=== PATIENT | female | born 1930 | race Caucasian/White ===

== ENCOUNTER → 2018-04-02 | Outpatient (CLI) | payer MEDICARE, OTHER ==
[2018-04-02 18:08] LABS: Basophils % (A) 0 %; Eosinophils # (A) 0.2 k/uL (0-0.7); Eosinophils % (A) 3 %; HCT 31.1 % (34.0-46.0); HGB 9.4 gm/dL (11.4-16.0); Hypochromasia Marked; Lymphocytes # (A) 1.1 k/uL (1.0-4.8); Lymphocytes % (A) 15 %; MCH 29.5 pg (25.0-35.0); MCHC 30.3 g/dL (31.0-37.0); MCV 97.4 fL (80.0-100.0); Mean Platelet Volume 6.7; Monocytes # (A) 0.4 k/uL (0-1.0); Monocytes % (A) 6 %; Neutrophils # (A) 5.8 k/uL (1.3-7.7); Neutrophils % (A) 75 %; Platelet Count 297 k/uL (150-450); RDW 13.2 % (11.5-15.5); WBC 7.7 k/uL (3.8-10.6)
[2018-04-03 03:05] LABS: Iron Saturation 10.54 (12.00-45.00)
== END ==
LOC: LABWHC1 16:46
PROVIDERS: ATTEND Family Medicine
DX: D64.9 Anemia, unspecified (principal)
CPT/HCPCS: 36415; 82728; 83540; 83550; 85025

== ENCOUNTER 2018-07-02 02:09 | Inpatient (IN) | payer MEDICARE, OTHER ==
[2018-07-02] MEDS ORDERED: SODIUM CHLORIDE 0.9% 500 ML 500 ML IV STA (02:49)
--- NOTE | 2018-07-02 02:52 | ED ---
General Adult HPI - General Source: patient, family, RN notes reviewed Mode of arrival: wheelchair Limitations: no limitations <Agusto Adorno P - Last Filed: 07/02/18 04:48> <Cleo Morin P - Last Filed: 07/03/18 04:08> - General Chief complaint: Abdominal Pain Stated complaint: Abdominal Pain Time Seen by Provider: 07/02/18 02:23 - History of Present Illness Initial comments: 87-year-old female with a PMH of hyperlipidemia presents to the emergency department for a chief complaint of abdominal pain 2 days. Patient states this pain started yesterday. She states it is a sharp pain across the middle of her abdomen. She denies any alleviating or aggravating factors. Patient denies nausea or vomiting. Patient states she has had diarrhea for the past 4 days due to starting azithromycin 5 days ago. She states her appetite has been less because of this diarrhea and she has not been eating and drinking as much as normal. She was on azithromycin for bronchitis which she states has completely resolved. Patient denies any dysuria. She denies any confusion at home. Patient has no other complaints at this time including shortness of breath , chest pain, nausea or vomiting, headache, or visual changes. (Agusto Adorno) - Related Data Home Medications Medication Instructions Recorded Confirmed Ascorbic Acid [Vitamin C] 500 mg PO DAILY 01/24/15 07/02/18 Calcium Carb-Vit D 500Mg-200Un 1 tab PO DAILY 01/24/15 07/02/18 [Oscal 500+D] Cholecalciferol [Vitamin D3] 1,000 unit PO DAILY 01/24/15 07/02/18 Multivit-Min/FA/Lycopene/Lut 1 tab PO DAILY 01/24/15 07/02/18 [Centrum Silver Tablet] Simvastatin 20 mg PO HS 01/24/15 07/02/18 Ascorbic Acid [Vitamin C] 1,000 mg PO DAILY 07/02/18 07/02/18 Aspirin [Adult Low Dose Aspirin EC] 81 mg PO DAILY 07/02/18 07/02/18 Cholecalciferol [Vitamin D3] 1,000 unit PO DAILY 07/02/18 07/02/18 Allergies Allergy/AdvReac Type Severity Reaction Status Date / Time No Known Allergies Allergy Verified 07/02/18 08:02 Review of Systems ROS Other: All systems not noted in ROS Statement are negative. <Agusto Adorno P - Last Filed: 07/02/18 04:48> ROS Other: All systems not noted in ROS Statement are negative. <MikelCleo P - Last Filed: 07/03/18 04:08> ROS Statement: Those systems with pertinent positive or pertinent negative responses have been documented in the HPI. Past Medical History Past Medical History: Hyperlipidemia Additional Past Medical History / Comment(s): osteoporosis History of Any Multi-Drug Resistant Organisms: None Reported Past Surgical History: Section Additional Past Surgical History / Comment(s): Excision of skin cancer on face 2 Past Anesthesia/Blood Transfusion Reactions: No Reported Reaction Past Psychological History: No Psychological Hx Reported Smoking Status: Never smoker Past Alcohol Use History: None Reported Past Drug Use History: None Reported - Past Family History Father Additional Family Medical History / Comment(s): Father had "heart condition" Mother Family Medical History: CVA/TIA, Diabetes Mellitus <Agusto Adorno P - Last Filed: 07/02/18 04:48> General Exam Limitations: no limitations General appearance: alert, in no apparent distress (Pleasant, well-appearing) Head exam: Present: atraumatic, normocephalic, normal inspection Eye exam: Present: normal appearance, PERRL, EOMI. Absent: scleral icterus, conjunctival injection, periorbital swelling ENT exam: Present: normal exam, mucous membranes moist Neck exam: Present: normal inspection, full ROM. Absent: tenderness, meningismus, lymphadenopathy Respiratory exam: Present: normal lung sounds bilaterally. Absent: respiratory distress, wheezes, rales, rhonchi, stridor Cardiovascular Exam: Present: regular rate, normal rhythm, normal heart sounds. Absent: systolic murmur, diastolic murmur, rubs, gallop, clicks GI/Abdominal exam: Present: soft, tenderness (Mild tenderness noted in the right lower quadrant, no guarding or rebound present. No upper abdominal tenderness. No left lower quadrant tenderness), normal bowel sounds. Absent: distended, guarding, rebound, rigid Neurological exam: Present: alert, oriented X3, CN II-XII intact Psychiatric exam: Present: normal affect, normal mood <Agusto Adorno P - Last Filed: 07/02/18 04:48> Vital Signs 07/02/18 02:11 Temperature 96.9 F L Pulse Rate 78 Respiratory 16 Rate Blood Pressure 125/71 O2 Sat by Pulse 99 Oximetry Medical Decision Making - Lab Data Result diagrams: 07/02/18 02:35 07/02/18 02:35 <Agusto Adorno P - Last Filed: 07/02/18 04:48> - Lab Data Result diagrams: 07/02/18 02:35 07/02/18 02:35 <Cleo Morin - Last Filed: 07/03/18 04:08> - Medical Decision Making 87-year-old female with a past medical history of hyperlipidemia presents to the emergency department for a chief complaint of mid abdominal pain 2 days. Patient states this started yesterday. She states over the past 5 days she has had azithromycin for bronchitis. She states it has caused her to have loose stools. Patient states she usually has loose stools but there are more than normal at this time. Vitals are within acceptable limits. On exam patient has minimal right lower quadrant tenderness, no significant upper abdominal tenderness. CBC did show white count 16.3. CMP unremarkable. Amylase and lipase are elevated, 146 and [address] shows partial small bowel obstruction. There is dilated cecum that measures 8.5 cm with luminal narrowing of the ascending colon that is suspicious for tumor. At this time patient will be admitted with consult to GI for pancreatitis and consult to surgery for suspicious tumor and small bowel obstruction. Patient is not vomiting at all, NG tube not required at this time. Patient comforted, all questions answered. (Agusto Adorno) I personally saw and examined the patient. I reviewed and agree with the mid- level provider findings including all diagnostic interpretations and treatment plans as written unless otherwise stated. I was present for gonzalez portions of any procedures performed. (Cleo Morin) - Lab Data Lab Results 07/02/18 07/02/18 07/02/18 Range/Units 02:35 02:35 04:15 WBC 16.3 H (3.8-10.6) k/uL RBC 3.86 (3.80-5.40) m/uL Hgb 10.6 L (11.4-16.0) gm/dL Hct 35.5 (34.0-46.0) % MCV 91.9 (80.0-100.0) fL MCH 27.5 (25.0-35.0) pg MCHC 29.9 L (31.0-37.0) g/dL RDW 13.8 (11.5-15.5) % Plt Count 397 (150-450) k/uL Neutrophils % 78 % Lymphocytes % 13 % Monocytes % 6 % Eosinophils % 1 % Basophils % 0 % Neutrophils # 12.7 H (1.3-7.7) k/uL Lymphocytes # 2.2 (1.0-4.8) k/uL Monocytes # 0.9 (0-1.0) k/uL Eosinophils # 0.1 (0-0.7) k/uL Basophils # 0.1 (0-0.2) k/uL Hypochromasia Moderate Sodium 135 L (137-145) mmol/L Potassium 4.2 (3.5-5.1) mmol/L Chloride 98 (98-107) mmol/L Carbon Dioxide 28 (22-30) mmol/L Anion Gap 9 mmol/L BUN 23 H (7-17) mg/dL Creatinine 0.74 (0.52-1.04) mg/dL Est GFR (CKD-EPI)AfAm 86 (>60 ml/min/1.73 sqM) Est GFR (CKD-EPI)NonAf 74 (>60 ml/min/1.73 sqM) Glucose 90 (74-99) mg/dL Calcium 9.5 (8.4-10.2) mg/dL Total Bilirubin 0.2 (0.2-1.3) mg/dL AST 27 (14-36) U/L ALT 28 (9-52) U/L Alkaline Phosphatase 62 (38-126) U/L Total Protein 7.1 (6.3-8.2) g/dL Albumin 3.8 (3.5-5.0) g/dL Amylase 146 H (30-110) U/L Lipase 538 H (23-300) U/L Urine Color Light Yellow Urine Appearance Clear (Clear) Urine pH 6.5 (5.0-8.0) Ur Specific Frederica 1.031 (1.001-1.035) Urine Protein Negative (Negative) Urine Glucose (UA) Negative (Negative) Urine Ketones Negative (Negative) Urine Blood Trace H (Negative) Urine Nitrite Negative (Negative) Urine Bilirubin Negative (Negative) Urine Urobilinogen <2.0 (<2.0) mg/dL Ur Leukocyte Esterase Negative (Negative) Urine RBC 1 (0-5) /hpf Urine WBC 1 (0-5) /hpf Ur Squamous Epith Cells <1 (0-4) /hpf Urine Mucus Rare H (None) /hpf Disposition Is patient prescribed a controlled substance at d/c from ED?: No Time of Disposition: 04:34 <Agusto Adorno P - Last Filed: 07/02/18 04:48> <Cleo Morin P - Last Filed: 07/03/18 04:08> Clinical Impression: Small bowel obstruction, Pancreatitis, Mass of cecum Disposition: ADMITTED IP TO THIS HOSP
[2018-07-02 03:00] LABS: Basophils # (A) 0.1 k/uL (0-0.2); Basophils % (A) 0 %; Eosinophils # (A) 0.1 k/uL (0-0.7); Eosinophils % (A) 1 %; HCT 35.5 % (34.0-46.0); HGB 10.6 gm/dL (11.4-16.0); Hypochromasia Moderate; Lymphocytes # (A) 2.2 k/uL (1.0-4.8); Lymphocytes % (A) 13 %; MCH 27.5 pg (25.0-35.0); MCHC 29.9 g/dL (31.0-37.0); MCV 91.9 fL (80.0-100.0); Mean Platelet Volume 6.4; Monocytes # (A) 0.9 k/uL (0-1.0); Monocytes % (A) 6 %; Neutrophils # (A) 12.7 k/uL (1.3-7.7); Neutrophils % (A) 78 %; Platelet Count 397 k/uL (150-450); RBC 3.86 m/uL (3.80-5.40); RDW 13.8 % (11.5-15.5); WBC 16.3 k/uL (3.8-10.6)
[2018-07-02 03:12] LABS: Albumin 3.8 g/dL (3.5-5.0); Calcium 9.5 mg/dL (8.4-10.2); Potassium 4.2 mmol/L (3.5-5.1); Total Bilirubin 0.2 mg/dL (0.2-1.3); Total Protein 7.1 g/dL (6.3-8.2)
--- NOTE | 2018-07-02 04:18 | CT ---
EXAMINATION TYPE: CT abdomen pelvis w con DATE OF EXAM: 07/02/2018 COMPARISON: 01/28/2016 HISTORY: upper abdominal pain CT DLP: 462.7 mGycm Automated exposure control for dose reduction was used. TECHNIQUE: Helical acquisition of images was performed from the lung bases through the pelvis. CONTRAST: Performed without Oral Contrast and with IV Contrast, patient injected with 100mL mL of Isovue 300. FINDINGS: Lung bases are clear of consolidation. There is subsegmental atelectasis at the lung bases. The heart is enlarged. There is no pericardial effusion. Stomach appears normal. Liver shows no focal defect. Spleen appears normal. There is no pancreatic mass. Bile ducts are not dilated. Gallbladder appears n ormal. There is no adrenal mass. Kidneys show satisfactory contrast opacification. There is no hydronephrosi s. There are left-sided renal parapelvic cysts. There is 1 cm cortical cyst posterior right kidney. T here is no retroperitoneal adenopathy. Abdominal aorta measures up to 2.8 cm. There is large amount o f fecal material in the cecum. There are sigmoid diverticula. There is no sign of diverticulitis. The re is tiny amount of free fluid in the pelvis on the right side. Bladder distends smoothly. There is no inguinal hernia. There are some dilated loops of proximal small bowel. These measure up to 3.2 cm. There appears to be some luminal narrowing of the ascending colon. This could be a malignant strictu re. IMPRESSION: THERE IS A PARTIAL SMALL BOWEL OBSTRUCTION. THERE IS DILATED CECUM THAT MEASURES 8.5 CM WITH LUMINAL NARROWING OF THE ASCENDING COLON THAT IS SUSPICIOUS FOR TUMOR. FOLLOW-UP RECOMMENDED. THIS IS PROBABL Y AN APPLE CORE LESION. MULTIPLE SIGMOID DIVERTICULA WITHOUT EVIDENCE OF DIVERTICULITIS. TINY AMOUNT OF FREE FLUID IN THE PEL VIS.
[2018-07-02] MEDS ORDERED: MORPHINE SULFATE 4 MG/ML SYRINGE IV PRN (04:34)
[2018-07-02] MEDS ORDERED: NALOXONE 0.4 MG/ML 1 ML VIAL IV PRN (04:34)
[2018-07-02 04:46] LABS: Appearance,Urine Clear (Clear); Bilirubin,Urine Negative (Negative); Blood,Urine Trace (Negative); Color,Urine Light Yellow; Glucose,Urine (UA) Negative (Negative); Ketones,Urine Negative (Negative); Leukocyte Esterase,Urine Negative (Negative); Mucus,Urine Rare /hpf; Nitrite,Urine Negative (Negative); PH, Urine 6.5 (5.0-8.0); Protein,Urine Negative (Negative); RBC,Urine 1 /hpf (0-5); Specific Gravity,Urine 1.031 (1.001-1.035); Squamous Epithelial Cell,Urine <1 /hpf (0-4); Urobilinogen,Urine <2.0 mg/dL (<2.0); WBC,Urine 1 /hpf (0-5)
[2018-07-02 05:16] VITALS: BMI 20.9
[2018-07-02] MEDS: ONDANSETRON 4 MG/2 ML VIAL IVP PRN (08:24)
[2018-07-02] MEDS: SODIUM CHLORIDE 0.9% 1,000 ML IV SCH ×2 (08:25→17:25)
--- NOTE | 2018-07-02 12:16 | P.HPIM ---
History of Present Illness 87-year-old pleasant female came in with compensative abdominal pain moderate severity across the upper and middle abdomen abdomen was having diarrhea as well patient was having diarrhea on the left today morning patient was started on antibiotics ampicillin for bronchitis since then she started having diarrhea multiple episodes a day. Patient was also having nausea vomiting because of which patient had an abdominal CAT scan which showed partial small bowel obstruction along with a mass in the ascending colon with dilated cecum and small bowel. Patient nausea improved pain improved patient does have bowel sounds patient's the doesn't have an NG tube patient was evaluated by gastroenterology resume her on clear liquid diet surgery will evaluate the patient because of the abdominal mass, the mass was discussed with the patient Review of Systems REVIEW OF SYSTEMS: CONSTITUTIONAL: No fever, no malaise, no fatigue. HEENT: No recent visual problems or hearing problems. Denied any sore throat. CARDIOVASCULAR: No chest pain, orthopnea, PND, no palpitations, no syncope. PULMONARY: No shortness of breath, no cough, no hemoptysis. GASTROINTESTINAL: As mentioned in HPI . NEUROLOGICAL: No headaches, no weakness, no numbness. HEMATOLOGICAL: Denies any bleeding or petechiae. GENITOURINARY: Denies any burning micturition, frequency, or urgency. MUSCULOSKELETAL/RHEUMATOLOGICAL: Denies any joint pain, swelling, or any muscle pain. ENDOCRINE: Denies any polyuria or polydipsia. The rest of the 14-point review of systems is negative. Past Medical History Past Medical History: Hyperlipidemia Additional Past Medical History / Comment(s): osteoporosis History of Any Multi-Drug Resistant Organisms: None Reported Past Surgical History: Section Additional Past Surgical History / Comment(s): Excision of skin cancer on face 2, appendectomy Past Anesthesia/Blood Transfusion Reactions: No Reported Reaction Past Psychological History: No Psychological Hx Reported Smoking Status: Never smoker Past Alcohol Use History: None Reported Past Drug Use History: None Reported - Past Family History Father Additional Family Medical History / Comment(s): Father had "heart condition" Mother Family Medical History: CVA/TIA, Diabetes Mellitus Medications and Allergies Home Medications Medication Instructions Recorded Confirmed Type Ascorbic Acid [Vitamin C] 500 mg PO DAILY 01/24/15 07/02/18 History Calcium Carb-Vit D 500Mg-200Un 1 tab PO DAILY 01/24/15 07/02/18 History [Oscal 500+D] Cholecalciferol [Vitamin D3] 1,000 unit PO DAILY 01/24/15 07/02/18 History Multivit-Min/FA/Lycopene/Lut 1 tab PO DAILY 01/24/15 07/02/18 History [Centrum Silver Tablet] Simvastatin 20 mg PO HS 01/24/15 07/02/18 History Ascorbic Acid [Vitamin C] 1,000 mg PO DAILY 07/02/18 07/02/18 History Aspirin [Adult Low Dose Aspirin EC] 81 mg PO DAILY 07/02/18 07/02/18 History Cholecalciferol [Vitamin D3] 1,000 unit PO DAILY 07/02/18 07/02/18 History Allergies Allergy/AdvReac Type Severity Reaction Status Date / Time No Known Allergies Allergy Verified 07/02/18 08:02 Physical Exam Vitals: Vital Signs Temp Pulse Pulse Pulse Resp BP BP 07/02/18 08:30 16 07/02/18 06:28 98.0 F 95 70 16 146/73 07/02/18 05:00 98 F 72 16 142/68 07/02/18 02:11 96.9 F L 78 16 125/71 Pulse Ox 07/02/18 08:30 07/02/18 06:28 07/02/18 05:00 100 07/02/18 02:11 99 Intake and Output 07/01/18 07/02/18 07/02/18 22:59 06:59 14:59 Intake Total 75 Balance 75 Intake: Intake, IV Titration 75 Amount Sodium Chloride 0.9% 1, 75 000 ml @ 75 mls/hr IV . [id number] [facility] Rx#:[id number] Other: Weight 47.174 kg PHYSICAL EXAMINATION: GENERAL: The patient is alert and oriented x3, not in any acute distress. Thin built elderly female HEENT: Pupils are round and equally reacting to light. EOMI. No scleral icterus. No conjunctival pallor. Normocephalic, atraumatic. No pharyngeal erythema. No thyromegaly. CARDIOVASCULAR: S1 and S2 present. No murmurs, rubs, or gallops. PULMONARY: Chest is clear to auscultation, no wheezing or crackles. ABDOMEN: Soft, nontender, nondistended, sluggish bowel sounds. MUSCULOSKELETAL: No joint swelling or deformity. EXTREMITIES: No cyanosis, clubbing, or pedal edema. NEUROLOGICAL: Gross neurological examination did not reveal any focal deficits. SKIN: No rashes. Results CBC & Chem 7: 07/02/18 02:35 07/02/18 02:35 Labs: Abnormal Lab Results - Last 24 Hours (Table) 07/02/18 07/02/18 07/02/18 Range/Units 02:35 02:35 04:15 WBC 16.3 H (3.8-10.6) k/uL Hgb 10.6 L (11.4-16.0) gm/dL MCHC 29.9 L (31.0-37.0) g/dL Neutrophils # 12.7 H (1.3-7.7) k/uL Sodium 135 L (137-145) mmol/L BUN 23 H (7-17) mg/dL Amylase 146 H (30-110) U/L Lipase 538 H (23-300) U/L Urine Blood Trace H (Negative) Urine Mucus Rare H (None) /hpf Thrombosis Risk Factor Assmnt - Choose All That Apply Any of the Below Risk Factors Present?: No Other Risk Factors: Yes Each Risk Factor Represents 3 Points: Age 75 years or older Other congenital or acquired thrombophilia - If yes, enter type in comment: No Thrombosis Risk Factor Assessment Total Risk Factor Score: 3 Thrombosis Risk Factor Assessment Level: Moderate Risk Assessment and Plan Plan: -Partial small bowel obstruction with a mass in the ascending colon to the surgery will evaluate the patient patient was resumed on clear liquid diet discussed with general surgery. -Hyperlipidemia Bob patient will be resumed on a statin whenever she can tolerate oral diet patient was already started on clear liquid at this time -Osteoporosis -Mildly elevated lipase: Suspicion is extremely low for pancreatitis is a nonspecific lipase elevation DVT prophylaxis with subcutaneous heparin and GI prophylaxis with Pepcid
[2018-07-02] MEDS: HEPARIN SODIUM,PORCINE 5,000 UNIT/ML 1 ML VIAL SQ SCH ×2 (12:39→21:35)
[2018-07-02] MEDS: ACETAMINOPHEN IV (For NPO) 700 MG in EMPTY BAG 1 BAG IVPB SCH ×3 (12:41→23:34)
--- NOTE | 2018-07-02 13:25 | P.GSCN ---
History of Present Illness Consult date: 07/02/18 Reason for Consult: Possible colonic obstruction History of present illness: 87-year-old female presents to the hospital with complaints of diarrhea and abdominal pain. A she was on antibiotics for bronchitis recently and states the diarrhea started following that. She is also having some episodes of vomiting. CAT scan was obtained which showed a distended cecum and some narrowing of the ascending colon. Possibility of obstructive tumor based on these CAT scan findings. Patient missed a decreased appetite. Feels better today. White blood cell count elevated. Patient had a previous laparoscopic appendectomy followed by colonoscopy by Dr. Nair 2-3 years ago. The colonoscopy was unable to reach the cecum. Barium enema however was normal. Review of Systems The patient denies any acute changes in vision or hearing, no dysphagia or odynophagia, no chest pain or shortness of breath, no dysuria or hematuria, no headache, no runny nose, no rectal bleeding or melena, no unexplained weight loss Past Medical History Past Medical History: Hyperlipidemia Additional Past Medical History / Comment(s): osteoporosis History of Any Multi-Drug Resistant Organisms: None Reported Past Surgical History: Section Additional Past Surgical History / Comment(s): Excision of skin cancer on face 2, appendectomy Past Anesthesia/Blood Transfusion Reactions: No Reported Reaction Past Psychological History: No Psychological Hx Reported Smoking Status: Never smoker Past Alcohol Use History: None Reported Past Drug Use History: None Reported - Past Family History Father Additional Family Medical History / Comment(s): Father had "heart condition" Mother Family Medical History: CVA/TIA, Diabetes Mellitus Medications and Allergies Home Medications Medication Instructions Recorded Confirmed Type Ascorbic Acid [Vitamin C] 500 mg PO DAILY 01/24/15 07/02/18 History Calcium Carb-Vit D 500Mg-200Un 1 tab PO DAILY 01/24/15 07/02/18 History [Oscal 500+D] Cholecalciferol [Vitamin D3] 1,000 unit PO DAILY 01/24/15 07/02/18 History Multivit-Min/FA/Lycopene/Lut 1 tab PO DAILY 01/24/15 07/02/18 History [Centrum Silver Tablet] Simvastatin 20 mg PO HS 01/24/15 07/02/18 History Ascorbic Acid [Vitamin C] 1,000 mg PO DAILY 07/02/18 07/02/18 History Aspirin [Adult Low Dose Aspirin EC] 81 mg PO DAILY 07/02/18 07/02/18 History Cholecalciferol [Vitamin D3] 1,000 unit PO DAILY 07/02/18 07/02/18 History Allergies Allergy/AdvReac Type Severity Reaction Status Date / Time No Known Allergies Allergy Verified 07/02/18 08:02 Surgical - Exam Vital Signs Temp Pulse Resp BP Pulse Ox 96.9 F L 78 16 125/71 99 07/02/18 02:11 07/02/18 02:11 07/02/18 02:11 07/02/18 02:11 07/02/18 02:11 Physical exam: General: Well-developed, well-nourished HEENT: Normocephalic, sclerae nonicteric Abdomen: Mild right lower quadrant tenderness, no mass, nondistended Extremities: No edema Neuro: Alert and oriented Results - Labs 07/02/18 02:35 07/02/18 02:35 Abnormal Lab Results - Last 24 Hours (Table) 07/02/18 07/02/18 07/02/18 Range/Units 02:35 02:35 04:15 WBC 16.3 H (3.8-10.6) k/uL Hgb 10.6 L (11.4-16.0) gm/dL MCHC 29.9 L (31.0-37.0) g/dL Neutrophils # 12.7 H (1.3-7.7) k/uL Sodium 135 L (137-145) mmol/L BUN 23 H (7-17) mg/dL Amylase 146 H (30-110) U/L Lipase 538 H (23-300) U/L Urine Blood Trace H (Negative) Urine Mucus Rare H (None) /hpf Diabetes panel 07/02/18 Range/Units 02:35 Sodium 135 L (137-145) mmol/L Potassium 4.2 (3.5-5.1) mmol/L Chloride 98 (98-107) mmol/L Carbon Dioxide 28 (22-30) mmol/L BUN 23 H (7-17) mg/dL Creatinine 0.74 (0.52-1.04) mg/dL Glucose 90 (74-99) mg/dL Calcium 9.5 (8.4-10.2) mg/dL AST 27 (14-36) U/L ALT 28 (9-52) U/L Alkaline Phosphatase 62 (38-126) U/L Total Protein 7.1 (6.3-8.2) g/dL Albumin 3.8 (3.5-5.0) g/dL Calcium panel 07/02/18 Range/Units 02:35 Calcium 9.5 (8.4-10.2) mg/dL Albumin 3.8 (3.5-5.0) g/dL Pituitary panel 07/02/18 Range/Units 02:35 Sodium 135 L (137-145) mmol/L Potassium 4.2 (3.5-5.1) mmol/L Chloride 98 (98-107) mmol/L Carbon Dioxide 28 (22-30) mmol/L BUN 23 H (7-17) mg/dL Creatinine 0.74 (0.52-1.04) mg/dL Glucose 90 (74-99) mg/dL Calcium 9.5 (8.4-10.2) mg/dL Adrenal panel 07/02/18 Range/Units 02:35 Sodium 135 L (137-145) mmol/L Potassium 4.2 (3.5-5.1) mmol/L Chloride 98 (98-107) mmol/L Carbon Dioxide 28 (22-30) mmol/L BUN 23 H (7-17) mg/dL Creatinine 0.74 (0.52-1.04) mg/dL Glucose 90 (74-99) mg/dL Calcium 9.5 (8.4-10.2) mg/dL Total Bilirubin 0.2 (0.2-1.3) mg/dL AST 27 (14-36) U/L ALT 28 (9-52) U/L Alkaline Phosphatase 62 (38-126) U/L Total Protein 7.1 (6.3-8.2) g/dL Albumin 3.8 (3.5-5.0) g/dL Assessment and Plan (1) Abdominal pain Narrative/Plan: Options discussed in detail with the patient and her daughter. We'll order a unprepped barium enema for tomorrow. Further decisions regarding surgical intervention will be made following that. The patient is agreeable for Dr. Nair to resume care at this point. I did discuss the case with her. She will resume care starting tomorrow. Current Visit: Yes Status: Acute Code(s): R10.9 - UNSPECIFIED ABDOMINAL PAIN SNOMED Code(s): 49747590
--- NOTE | 2018-07-02 21:54 | CONS ---
CONSULTATION REQUESTING PHYSICIAN: Dr. Odin Alexander. REASON FOR CONSULTATION: Abdominal pain. HISTORY OF PRESENT ILLNESS: The patient is an 87-year-old pleasant white female admitted to the hospital with acute onset of abdominal pain that started yesterday afternoon. The pain is around the periumbilical area radiating to the lower abdomen associated with some nausea and vomiting. She was diagnosed with bronchitis about a week ago and was treated with a Z- Terry which she finished yesterday. She started having diarrhea about 2 days ago with 3- 4 loose watery bowel movements daily and yesterday started having this abdominal pain associated with nausea, vomiting. Came into the emergency room and subsequently had a CT of the abdomen and pelvis done that showed partial small bowel obstruction with dilated cecum that measured about 8.5 cm with luminal narrowing of the ascending colon suspicious for an apple-core lesion. Also, there was evidence of multiple sigmoid diverticulosis. The patient had a ruptured appendix in 2014 at which time she underwent emergency surgery by Dr. Nair. A year later she had an attempted colonoscopy by Dr. Nair and apparently was unsuccessful, but this was followed by a barium enema, which was reported as normal. Records are not available at the time of this dictation. PAST MEDICAL HISTORY: Significant for hypertension, hyperlipidemia, osteoporosis. MEDICATIONS: At home include simvastatin, vitamin D3, calcium supplements, alendronate, and vitamin C. PAST SURGICAL HISTORY: and appendectomy, attempted colonoscopy 2 years ago. SOCIAL HISTORY: No smoking. No alcohol use. FAMILY HISTORY: Unremarkable. Father had some heart condition. Mother had CVA. REVIEW OF SYSTEMS: Cardiopulmonary: No chest pain, shortness of breath. : No dysuria or hematuria. Musculoskeletal: Unremarkable. Skin: Unremarkable. Endocrine: Unremarkable. Psychiatry: Unremarkable. ENT/vision unremarkable. Constitutional: No recent weight loss. No fever, chills, night sweats. PHYSICAL EXAMINATION: She appears comfortable. No apparent distress. VITAL SIGNS: Stable. Blood pressure is 125/71, pulse rate 78, temperature 96.9. HEENT examination unremarkable. Sclerae anicteric. Oral cavity no lesions. No JVD or lymph node enlargement. Chest is clear to auscultation. HEART: Regular rate and rhythm. Abdomen is soft. Mild tenderness in the right lower quadrant area. The rest of the abdomen is benign. It appears slightly distended in the right lower quadrant also. Bowel sounds are positive. EXTREMITIES: No pedal edema. SKIN: No rashes. NEUROLOGIC: Alert and oriented x3. No focal deficits. LABS: Done today show WBC 16.3, hemoglobin 10.6, platelets are 397. Basic metabolic panel is within normal limits. Amylase is 146, lipase is 533. IMPRESSION: This is a lady who presents with acute onset of lower abdominal pain that started yesterday associated with some nausea, vomiting, diarrhea, and CT scan showing dilated cecum, some dilation of the small bowel loops and stricture of the ascending colon suspicious for apple-core lesion. Last colonoscopy by Dr. Niar was 2 years ago, but was unsuccessful and apparently this was followed by a barium enema that was reported as normal. RECOMMENDATIONS: I discussed with the patient as well as her daughter at the bedside the findings of the CT scan and at this time she may need a colonoscopy to investigate this further. However, the CT scan did show evidence of partial small-bowel obstruction and hence we will await recommendations from Dr. Gonsales who was also consulted. In the meantime, I will start her on a clear liquid diet and we will plan for colonoscopy in the next 1 or 2 days based on her clinical course. Thank you for this consultation. MMODL / IJN: [id number] /
[2018-07-03] MEDS: ACETAMINOPHEN IV (For NPO) 700 MG in EMPTY BAG 1 BAG IVPB SCH (05:30)
[2018-07-03] MEDS: HEPARIN SODIUM,PORCINE 5,000 UNIT/ML 1 ML VIAL SQ SCH ×2 (08:32→22:28)
[2018-07-03] MEDS: SODIUM CHLORIDE 0.9% 1,000 ML IV SCH ×2 (08:32→22:33)
--- NOTE | 2018-07-03 12:28 | FL ---
EXAMINATION TYPE: FL barium enema DATE OF EXAM: 07/03/2018 COMPARISON: CT abdomen and pelvis from yesterday and older CTs HISTORY: Abnormal CT. Mid abdominal pain. History of appendectomy surgery 3 years earlier. TECHNIQUE: A double contrast barium enema study is attempted. A total of 2 minutes 29 seconds of flu oroscopic time was utilized during procedure. 35 images are saved. FINDINGS: Gear Nicker view of the abdomen shows overall gas prominent small and large bowel loops with mul tiple air-fluid levels including redemonstration of prominent cecum with air-fluid level. Scattered p elvic phleboliths are noted. Enema study is done performed. There is satisfactory flow of contrast to the cecum. Reflux of contras t into terminal ileum is noted. Evaluation suboptimal due to poor patient preparation with fecal mate rial throughout the visualized colon, also marked reflux of contrast into distal ileum makes evaluati on suboptimal especially for polyps. There is diverticulosis throughout the sigmoid colon. Appendix is surgically absent. No obstructing or constricting lesion is clearly seen with particular attention to the right colon at area of CT co ncern. Prominent cecum redemonstrated. Cannot exclude eccentric mucosal lesions in the cecum or mid t ransverse colon. Advise colonoscopy follow-up would patient is more clinically stable and better prep ped. IMPRESSION: Suboptimal study without evidence of obstructing or constricting mass or neoplasm with p articular attention to area of concern in right colon. Images saved to PACS system for ordering surge on. See above.
[2018-07-03] MEDS ORDERED: METOCLOPRAMIDE 5 MG/ML 2 ML VIAL IVP PRN (15:39)
--- NOTE | 2018-07-03 15:39 | P.GSCN ---
History of Present Illness Consult date: 07/03/18 Reason for Consult: Possible bowel obstruction History of present illness: The patient presented to the emergency department concerned she was dehydrated. She had a bronchitis and was treated with antibiotics for that. Subsequently developed some diarrhea. Had some episodes of vomiting. Over the last year her abdomen hasn't felt quite normal. She'll get episodes of some abdominal discomfort and diarrhea. No weight loss. I did do a laparoscopic appendectomy on her in 2014. We followed up with a colonoscopy which was incomplete due to a very redundant colon. A barium enema was also done in 2015 and was reported as normal. She has not noticed blood in the stools or dark tarry stools. She did have her barium enema performed this morning. He is not having any pain. She is passing some barium and flatus. She is hungry Review of Systems All systems: negative Past Medical History Past Medical History: Hyperlipidemia Additional Past Medical History / Comment(s): osteoporosis History of Any Multi-Drug Resistant Organisms: None Reported Past Surgical History: Section Additional Past Surgical History / Comment(s): Excision of skin cancer on face 2, laparoscopic appendectomy due to perforated appendicitis Past Anesthesia/Blood Transfusion Reactions: No Reported Reaction Past Psychological History: No Psychological Hx Reported Smoking Status: Never smoker Past Alcohol Use History: None Reported Past Drug Use History: None Reported - Past Family History Father Additional Family Medical History / Comment(s): Father had "heart condition" Mother Family Medical History: CVA/TIA, Diabetes Mellitus Medications and Allergies Home Medications Medication Instructions Recorded Confirmed Type Ascorbic Acid [Vitamin C] 500 mg PO DAILY 01/24/15 07/02/18 History Calcium Carb-Vit D 500Mg-200Un 1 tab PO DAILY 01/24/15 07/02/18 History [Oscal 500+D] Cholecalciferol [Vitamin D3] 1,000 unit PO DAILY 01/24/15 07/02/18 History Multivit-Min/FA/Lycopene/Lut 1 tab PO DAILY 01/24/15 07/02/18 History [Centrum Silver Tablet] Simvastatin 20 mg PO HS 01/24/15 07/02/18 History Ascorbic Acid [Vitamin C] 1,000 mg PO DAILY 07/02/18 07/02/18 History Aspirin [Adult Low Dose Aspirin EC] 81 mg PO DAILY 07/02/18 07/02/18 History Cholecalciferol [Vitamin D3] 1,000 unit PO DAILY 07/02/18 07/02/18 History Allergies Allergy/AdvReac Type Severity Reaction Status Date / Time No Known Allergies Allergy Verified 07/02/18 08:02 Surgical - Exam Osteopathic Statement: *. No significant issues noted on an osteopathic structural exam other than those noted in the History and Physical/Consult. Vital Signs Temp Pulse Resp BP Pulse Ox 96.9 F L 78 16 125/71 99 07/02/18 02:11 07/02/18 02:11 07/02/18 02:11 07/02/18 02:11 07/02/18 02:11 - General well developed, well nourished, no distress - Eyes normal ocular movement - Respiratory normal respiratory effort - Abdomen Abdomen: soft, non tender, bowel sounds, no guarding, no rigid, no rebound, no distended Results - Labs 07/02/18 02:35 07/02/18 02:35 Microbiology - Last 24 Hours (Table) 07/02/18 04:15 Blood Culture - Preliminary Blood No Growth after 24 hours - Imaging CT scan - abdomen: report reviewed, image reviewed Additional studies: Barium enema was reviewed. Contrast was able to flow through to the terminal ileum. Some of the images appeared atypical and colonoscopy was recommended Assessment and Plan (1) Abnormal computed tomography angiography (CTA) of abdomen Current Visit: Yes Status: Acute Code(s): R93.5 - ABN FINDINGS ON DX IMAGING OF ABD REGIONS, INC RETROPERITON SNOMED Code(s): 088936751 (2) Abdominal pain Current Visit: Yes Status: Acute Code(s): R10.9 - UNSPECIFIED ABDOMINAL PAIN SNOMED Code(s): 49166020 Plan: The barium enema did not confirm a high-grade obstruction. I did discuss the case with Dr. Jay. We'll have the patient get a colonoscopy tomorrow to further examine the right colon. The patient and I discussed the options of no further workup versus colonoscopy along with possible surgical options if abnormality is found in the colon. After some discussion she agreed to the colonoscopy. Further recommendations to follow.
[2018-07-03] MEDS ORDERED: PEG 3350-NA SULF,BICARB,CL/KCL 4,000 ML BOTTLE PO ONE ×2 (16:00→18:00)
--- NOTE | 2018-07-03 16:30 | P.PN ---
Subjective 87-year-old admitted for partial small bowel obstruction every appears to have a mass in the ascending colon patient does not have any high-grade obstruction in the barium testing. Options were discussed with the patient by me as well as the surgeon regarding whether to get a colonoscopy at no further testing at all. Constitutional: Denied any fatigue denied any fever. Cardio vascular: denied any chest pain, palpitations Gastrointestinal denied any nausea vomiting Pulmonary: Denied any shortness of breath cough Neurologic denied any new focal deficits All inpatient medications were reviewed and appropriate changes in these medications as dictated in the interval history and assessment and plan. Objective - Vital Signs Vital signs: Vital Signs Temp 97.6 F 07/03/18 15:00 Pulse 63 07/03/18 15:00 Resp 14 07/03/18 15:00 BP 119/65 07/03/18 15:00 Pulse Ox 94 L 07/03/18 15:00 Intake & Output 07/02/18 07/03/18 07/03/18 18:59 06:59 18:59 Intake Total 480 Balance 480 Intake: Oral 480 Other: # Voids 2 2 # Bowel Movements 1 - Exam PHYSICAL EXAMINATION: GENERAL: The patient is alert and oriented x3, not in any acute distress. Well developed, well nourished. HEENT: Pupils are round and equally reacting to light. EOMI. No scleral icterus. No conjunctival pallor. Normocephalic, atraumatic. No pharyngeal erythema. No thyromegaly. CARDIOVASCULAR: S1 and S2 present. No murmurs, rubs, or gallops. PULMONARY: Chest is clear to auscultation, no wheezing or crackles. ABDOMEN: Soft, nontender, nondistended, normoactive bowel sounds. No palpable organomegaly. MUSCULOSKELETAL: No joint swelling or deformity. EXTREMITIES: No cyanosis, clubbing, or pedal edema. NEUROLOGICAL: Gross neurological examination did not reveal any focal deficits. SKIN: No rashes. - Labs CBC & Chem 7: 07/02/18 02:35 07/02/18 02:35 Labs: Microbiology - Last 24 Hours (Table) 07/02/18 04:15 Blood Culture - Preliminary Blood No Growth after 24 hours Assessment and Plan Plan: -Partial small bowel obstruction with a mass in the ascending, further workup as mentioned above depending on her shins decision whether to have a colonoscopy R no further workup at all considering her age. High possibility of cancer was discussed with the patient -Hyperlipidemia : patient will be resumed on a statin whenever she can tolerate oral diet patient was already started on clear liquid at this time -Osteoporosis -Mildly elevated lipase: Suspicion is extremely low for pancreatitis is a nonspecific lipase elevation DVT prophylaxis with subcutaneous heparin and GI prophylaxis with Pepcid
--- NOTE | 2018-07-03 23:42 | P.PN ---
Subjective Progress Note Date: 07/03/18 Principal diagnosis: Abdominal pain, partial small bowel obstruction The patient was seen today lying in bed. Reports improvement in abdominal pain. She stating that she is passing gas. No nausea or vomiting. Objective - Vital Signs Vital signs: Vital Signs Temp 97.5 F L 07/03/18 22:36 Pulse 84 07/03/18 22:36 Resp 16 07/03/18 22:36 BP 119/73 07/03/18 22:36 Pulse Ox 100 07/03/18 22:36 Intake & Output 07/03/18 07/03/18 07/04/18 06:59 18:59 06:59 Intake Total 480 Balance 480 Intake: Oral 480 Other: # Voids 2 2 # Bowel Movements 1 - Exam On physical examination, patient appears comfortable in no apparent distress. HEAD: Normocephalic, atraumatic. EYES: No scleral icterus. No conjunctival injection. MOUTH: No lesions, tongue midline. NECK: Trachea midline, no gross abnormalities. CHEST: Clear to auscultation with no wheezing or rhonchi appreciated. HEART: Regular rate and rhythm. ABDOMEN: Soft. Bowel sounds are positive. No organomegaly. No guarding or rigidity. EXTREMITIES: No pedal edema. SKIN: No rashes, no jaundice. NEUROLOGIC: Alert and oriented x3. No focal deficits. - Labs CBC & Chem 7: 07/02/18 02:35 07/02/18 02:35 Labs: Microbiology - Last 24 Hours (Table) 07/02/18 04:15 Blood Culture - Preliminary Blood No Growth after 24 hours Assessment and Plan (1) Abdominal pain Narrative/Plan: Patient presenting with abdominal pain and findings of partial small bowel obstruction on imaging. Currently she is reporting resolution of her pain and is passing flatus. Current Visit: Yes Status: Acute Code(s): R10.9 - UNSPECIFIED ABDOMINAL PAIN SNOMED Code(s): 92725816 (2) Mass of cecum Narrative/Plan: Initial imaging showed a possible right sided/cecal mass. Follow-up barium enema did not show any abnormality in the right colon, however given the patient 's history of incomplete prior colonoscopy that decision has been made to proceed with colonoscopy for further visualization of the area to ensure no pathology. Current Visit: Yes Status: Acute Code(s): K63.9 - DISEASE OF INTESTINE, UNSPECIFIED SNOMED Code(s): 551985243 (3) Small bowel obstruction Current Visit: Yes Status: Acute Code(s): K56.609 - UNSP INTESTNL OBST, UNSP TO PARTIAL VERSUS COMPLETE OBST SNOMED Code(s): 671625544 Plan: Supportive care Appreciate recommendations from surgical service Bowel prep Nothing by mouth after midnight Plan for colonoscopy in the morning Thank you for allowing us to participate in the care of this patient we will continue to follow
[2018-07-04 08:12] LABS: HCT 34.4 % (34.0-46.0); HGB 10.4 gm/dL (11.4-16.0); Hypochromasia Marked; MCH 28.1 pg (25.0-35.0); MCHC 30.2 g/dL (31.0-37.0); MCV 93.1 fL (80.0-100.0); Mean Platelet Volume 6.4; Platelet Count 334 k/uL (150-450); WBC 12.5 k/uL (3.8-10.6)
[2018-07-04] MEDS: HEPARIN SODIUM,PORCINE 5,000 UNIT/ML 1 ML VIAL SQ SCH ×2 (08:13→21:07)
[2018-07-04 08:21] LABS: Anion Gap 8 mmol/L; Blood Urea Nitrogen 12 mg/dL (7-17); Carbon Dioxide 25 mmol/L (22-30); Chloride 108 mmol/L (98-107); Glucose 61 mg/dL (74-99); Sodium 141 mmol/L (137-145)
[2018-07-04] MEDS: SODIUM CHLORIDE 0.9% 1,000 ML IV SCH (08:26)
[2018-07-04] MEDS ORDERED: MAGNESIUM CITRATE 296 ML BOTTLE PO ONE (12:00)
--- NOTE | 2018-07-04 12:49 | P.PN ---
Subjective 87-year-old admitted for partial small bowel obstruction every appears to have a mass in the ascending colon patient does not have any high-grade obstruction in the barium testing. Options were discussed with the patient by me as well as the surgeon regarding whether to get a colonoscopy at no further testing at all. 07/04/2018 Patient had a poor prep today for colonoscopy may have to wait until tomorrow for colonoscopy after the colonoscopy and biopsy patient probably can be discharged tomorrow no more nausea vomiting or abdominal pain at this time . Constitutional: Denied any fatigue denied any fever. Cardio vascular: denied any chest pain, palpitations Gastrointestinal denied any nausea vomiting Pulmonary: Denied any shortness of breath cough Neurologic denied any new focal deficits All inpatient medications were reviewed and appropriate changes in these medications as dictated in the interval history and assessment and plan. Objective - Vital Signs Vital signs: Vital Signs Temp 98.1 F 07/04/18 07:00 Pulse 75 07/04/18 07:00 Resp 16 07/04/18 07:39 BP 129/74 07/04/18 07:00 Pulse Ox 98 07/04/18 07:00 Intake & Output 07/03/18 07/04/18 07/04/18 18:59 06:59 18:59 Intake Total 450 Balance 450 Weight 47.174 kg Intake: Intake, IV Titration 450 Amount Sodium Chloride 0.9% 1, 450 000 ml @ 75 mls/hr IV . [id number] [facility] Rx#:[id number] Other: # Voids 2 5 # Bowel Movements 5 3 - Exam PHYSICAL EXAMINATION: GENERAL: The patient is alert and oriented x3, not in any acute distress. Well developed, well nourished. HEENT: Pupils are round and equally reacting to light. EOMI. No scleral icterus. No conjunctival pallor. Normocephalic, atraumatic. No pharyngeal erythema. No thyromegaly. CARDIOVASCULAR: S1 and S2 present. No murmurs, rubs, or gallops. PULMONARY: Chest is clear to auscultation, no wheezing or crackles. ABDOMEN: Soft, nontender, nondistended, normoactive bowel sounds. No palpable organomegaly. MUSCULOSKELETAL: No joint swelling or deformity. EXTREMITIES: No cyanosis, clubbing, or pedal edema. NEUROLOGICAL: Gross neurological examination did not reveal any focal deficits. SKIN: No rashes. - Labs CBC & Chem 7: 07/04/18 07:35 07/04/18 07:35 Labs: Abnormal Lab Results - Last 24 Hours (Table) 07/04/18 07/04/18 Range/Units 07:35 07:35 WBC 12.5 H (3.8-10.6) k/uL RBC 3.70 L (3.80-5.40) m/uL Hgb 10.4 L (11.4-16.0) gm/dL MCHC 30.2 L (31.0-37.0) g/dL Chloride 108 H (98-107) mmol/L Glucose 61 L (74-99) mg/dL Calcium 8.0 L (8.4-10.2) mg/dL Microbiology - Last 24 Hours (Table) 07/02/18 04:15 Blood Culture - Preliminary Blood No Growth after 48 hours Assessment and Plan Plan: -Partial small bowel obstruction with a mass in the ascending,possible colonoscopy tomorrow continue with IV fluids and tomorrow probably can be discontinued tomorrow -Hyperlipidemia : patient will be resumed on a statin . -Osteoporosis -Mildly elevated lipase: Suspicion is extremely low for pancreatitis is a nonspecific lipase elevation DVT prophylaxis with subcutaneous heparin and GI prophylaxis with Pepcid
[2018-07-04] MEDS ORDERED: BISACODYL 5 MG TABLET.DR PO STA (17:40)
--- NOTE | 2018-07-04 18:14 | P.PN ---
Progress Note - Text Progress Note Date: 07/04/18 The patient wasn't able to complete the prep for a colonoscopy this morning. Today she received additional prep, which she is tolerating. Will check on results of colonoscopy tomorrow.
[2018-07-05] MEDS: SODIUM CHLORIDE 0.9% 1,000 ML IV SCH ×3 (03:25→22:00)
[2018-07-05] MEDS ORDERED: MAGNESIUM CITRATE 296 ML BOTTLE PO ONE (06:06)
[2018-07-05] MEDS: HEPARIN SODIUM,PORCINE 5,000 UNIT/ML 1 ML VIAL SQ SCH ×2 (07:50→21:34)
--- NOTE | 2018-07-05 08:38 | P.PN ---
Subjective Progress Note Date: 07/04/18 Principal diagnosis: Abdominal pain, partial small bowel obstruction The patient was seen today sitting bedside. No abdominal pain reported. Reports multiple episodes of bowel movements with bowel prep, however she was unable to tolerate the full prep due to nausea. Objective - Vital Signs Vital signs: Vital Signs Temp 97.5 F L 07/04/18 20:58 Pulse 76 07/04/18 21:14 Resp 16 07/04/18 20:58 BP 127/55 07/04/18 20:58 Pulse Ox 99 07/04/18 20:58 Intake & Output 07/04/18 07/04/18 07/05/18 06:59 18:59 06:59 Intake Total 450 600 600 Balance 450 600 600 Weight 47.174 kg Intake: Intake, IV Titration 450 600 600 Amount Sodium Chloride 0.9% 1, 450 600 600 000 ml @ 75 mls/hr IV . [id number] [facility] Rx#:[id number] Other: Voiding Method Toilet # Voids 5 1 # Bowel Movements 5 3 2 - Exam On physical examination, patient appears comfortable in no apparent distress. HEAD: Normocephalic, atraumatic. EYES: No scleral icterus. No conjunctival injection. MOUTH: No lesions, tongue midline. NECK: Trachea midline, no gross abnormalities. CHEST: Clear to auscultation with no wheezing or rhonchi appreciated. HEART: Regular rate and rhythm. ABDOMEN: Soft. Bowel sounds are positive. No organomegaly. No guarding or rigidity. EXTREMITIES: No pedal edema. SKIN: No rashes, no jaundice. NEUROLOGIC: Alert and oriented x3. No focal deficits. - Labs CBC & Chem 7: 07/04/18 07:35 07/04/18 07:35 Labs: Abnormal Lab Results - Last 24 Hours (Table) 07/04/18 07/04/18 Range/Units 07:35 07:35 WBC 12.5 H (3.8-10.6) k/uL RBC 3.70 L (3.80-5.40) m/uL Hgb 10.4 L (11.4-16.0) gm/dL MCHC 30.2 L (31.0-37.0) g/dL Chloride 108 H (98-107) mmol/L Glucose 61 L (74-99) mg/dL Calcium 8.0 L (8.4-10.2) mg/dL Microbiology - Last 24 Hours (Table) 07/02/18 04:15 Blood Culture - Preliminary Blood No Growth after 48 hours Assessment and Plan (1) Abdominal pain Narrative/Plan: Patient presenting with abdominal pain and findings of partial small bowel obstruction on imaging. Currently she is reporting resolution of her pain. Current Visit: Yes Status: Acute Code(s): R10.9 - UNSPECIFIED ABDOMINAL PAIN SNOMED Code(s): 90739813 (2) Mass of cecum Narrative/Plan: Initial imaging showed a possible right sided/cecal mass. Follow-up barium enema did not show any abnormality in the right colon, however given the patient 's history of incomplete prior colonoscopy that decision has been made to proceed with colonoscopy for further visualization of the area to ensure no pathology. Current Visit: Yes Status: Acute Code(s): K63.9 - DISEASE OF INTESTINE, UNSPECIFIED SNOMED Code(s): 628515096 (3) Small bowel obstruction Current Visit: Yes Status: Acute Code(s): K56.609 - UNSP INTESTNL OBST, UNSP TO PARTIAL VERSUS COMPLETE OBST SNOMED Code(s): 422132381 Plan: Supportive care Appreciate recommendations from surgical service Bowel prep Nothing by mouth after midnight Plan for colonoscopy Thank you for allowing us to participate in the care of this patient we will continue to follow
[2018-07-05 09:53] LABS: Basophils % (A) 0 %; Eosinophils # (A) 0.1 k/uL (0-0.7); Eosinophils % (A) 2 %; HCT 29.8 % (34.0-46.0); HGB 9.1 gm/dL (11.4-16.0); Hypochromasia Moderate; Lymphocytes # (A) 1.1 k/uL (1.0-4.8); Lymphocytes % (A) 13 %; MCH 28.1 pg (25.0-35.0); MCHC 30.5 g/dL (31.0-37.0); MCV 92.3 fL (80.0-100.0); Mean Platelet Volume 6.5; Monocytes # (A) 0.5 k/uL (0-1.0); Monocytes % (A) 5 %; Neutrophils # (A) 6.7 k/uL (1.3-7.7); Neutrophils % (A) 78 %; Platelet Count 284 k/uL (150-450); RBC 3.23 m/uL (3.80-5.40); RDW 14.2 % (11.5-15.5); WBC 8.6 k/uL (3.8-10.6)
[2018-07-05] MEDS ORDERED: LIDOCAINE 1% INJ 10MG/ML (20 ML MDV) ONE (10:08)
[2018-07-05] MEDS ORDERED: PROPOFOL 10 MG/ML 20 ML VIAL IV ONE (10:08)
[2018-07-05] MEDS ORDERED: IV FLUID CONTINUATION 1,000 ML IV ONE (10:13)
--- NOTE | 2018-07-05 11:17 | P.PCN ---
Date of Procedure: 07/05/18 Procedure(s) Performed: BRIEF HISTORY: Patient is a 87-year-old pleasant white female, admitted to the hospital 4 days ago with right-sided abdominal pain. CT of the abdomen showed thickening of the ascending colon with a possible apple core lesion. She is hence scheduled for colonoscopy to evaluate further. PROCEDURE PERFORMED: Colonoscopy with biopsy and tattooing with Dinorah ink PREOPERATIVE DIAGNOSIS: Right-sided abdominal pain and abnormal CAT scan showing questionable lesion in the ascending colon. IV sedation per Anesthesia. PROCEDURE: After informed consent was obtained, the patient, was brought into the endoscopy unit. IV sedation was administered by Anesthesia under continuous monitoring. Digital rectal examination was normal. Initially the Olympus CF- 160 flexible video colonoscope was then inserted in the rectum, gradually advanced into the right colon where there was a large circumferential ulcerated mass with luminal narrowing identified. I could not advance the scope through the mass into the cecum. At this time and will biopsies were done from the ascending colon mass. Tattooing was done with Dinorah ink the distal margin of the mass. The rest of the transverse colon, descending colon, sigmoid colon, and rectum appeared normal. Moderate left side diverticulosis seen. Retroflexion was performed in the rectum and no lesions were seen. The patient tolerated the procedure well. IMPRESSION: Circumferential ulcerated ascending colon mass with significant luminal narrowing status post multiple biopsies and tattooing with Dinorah ink Moderate left sided diverticulosis RECOMMENDATIONS: Findings of this examination were discussed with the patient as well as her family. Discussed with Dr. Nair. She'll be started on a clear liquid diet..
--- NOTE | 2018-07-05 14:35 | P.PN ---
Subjective Progress Note Date: 07/05/18 The patient underwent her colonoscopy today with finding of a near obstructing tumor in the right colon. The area was tattooed and biopsied by Dr. Jay. I discussed the findings with the patient and the daughter. Her symptoms are consistent with a obstructing tumor. I would recommend a right hemicolectomy. This can be attempted robotically which would significantly decrease her postoperative recuperation and have fewer perioperative complications. The procedure risks and complications were discussed. Questions were encouraged and answered. We discussed operative versus nonoperative care. I think overall she is at low risk for surgery and leaving the tumor would result in obstruction and possibly perforation along with possible metastatic disease. There is no obvious metastasis is seen at this point on her CAT scan. She like to proceed with surgery. We'll give her oral antibiotics to decrease infection rate along with DVT and ulcer prophylaxis and tentatively schedule her for tomorrow. Objective - Vital Signs Vital signs: Vital Signs Temp 97.7 F 07/05/18 07:00 Pulse 59 L 07/05/18 07:00 Resp 12 07/05/18 07:00 BP 146/55 07/05/18 07:00 Pulse Ox 93 L 07/05/18 07:00 Intake & Output 07/04/18 07/05/18 07/05/18 18:59 06:59 18:59 Intake Total 600 1200 100 Balance 600 1200 100 Weight 47.174 kg 47.174 kg Intake: IV 100 Intake, IV Titration 600 1200 Amount Sodium Chloride 0.9% 1, 600 1200 000 ml @ 75 mls/hr IV . [id number] [facility] Rx#:[id number] Other: Voiding Method Toilet Toilet # Voids 1 # Bowel Movements 3 1 - Labs CBC & Chem 7: 07/05/18 09:20 07/04/18 07:35 Labs: Abnormal Lab Results - Last 24 Hours (Table) 07/05/18 Range/Units 09:20 RBC 3.23 L (3.80-5.40) m/uL Hgb 9.1 L (11.4-16.0) gm/dL Hct 29.8 L (34.0-46.0) % MCHC 30.5 L (31.0-37.0) g/dL Microbiology - Last 24 Hours (Table) 07/02/18 04:15 Blood Culture - Preliminary Blood No Growth after 72 hours Assessment and Plan (1) Abnormal computed tomography angiography (CTA) of abdomen Current Visit: Yes Status: Acute Code(s): R93.5 - ABN FINDINGS ON DX IMAGING OF ABD REGIONS, INC RETROPERITON SNOMED Code(s): 478513513 (2) Abdominal pain Current Visit: Yes Status: Acute Code(s): R10.9 - UNSPECIFIED ABDOMINAL PAIN SNOMED Code(s): 34948850
[2018-07-05] MEDS: metroNIDAZOLE 500 MG TAB PO SCH ×3 (15:08→21:34)
[2018-07-05] MEDS: ERYTHROMYCIN 250 MG TAB PO SCH ×2 (15:08→17:28)
--- NOTE | 2018-07-05 16:40 | P.PN ---
Subjective 87-year-old admitted for partial small bowel obstruction every appears to have a mass in the ascending colon patient does not have any high-grade obstruction in the barium testing. Options were discussed with the patient by me as well as the surgeon regarding whether to get a colonoscopy at no further testing at all. 07/04/2018 Patient had a poor prep today for colonoscopy may have to wait until tomorrow for colonoscopy after the colonoscopy and biopsy patient probably can be discharged tomorrow no more nausea vomiting or abdominal pain at this time . Constitutional: Denied any fatigue denied any fever. 07/05/2018 Patient had a colonoscopy which showed an ulcerating mass in the ascending colon patient will go for laparotomy and bowel resection tomorrow. We will obtain EKG patient is low to intermediate risk for surgery. Risk and benefits of surgery were explained to the patient patient is agreeable for the procedure. Cardio vascular: denied any chest pain, palpitations Gastrointestinal denied any nausea vomiting Pulmonary: Denied any shortness of breath cough Neurologic denied any new focal deficits All inpatient medications were reviewed and appropriate changes in these medications as dictated in the interval history and assessment and plan. Objective - Vital Signs Vital signs: Vital Signs Temp 97.6 F 07/05/18 15:00 Pulse 51 L 07/05/18 15:00 Resp 12 07/05/18 16:33 BP 130/62 07/05/18 15:00 Pulse Ox 93 L 07/05/18 07:00 Intake & Output 07/04/18 07/05/18 07/05/18 18:59 06:59 18:59 Intake Total 600 1200 700 Balance 600 1200 700 Weight 47.174 kg 47.174 kg Intake: IV 100 Intake, IV Titration 600 1200 600 Amount Sodium Chloride 0.9% 1, 600 1200 600 000 ml @ 75 mls/hr IV . [id number] [facility] Rx#:[id number] Other: Voiding Method Toilet Toilet # Voids 1 # Bowel Movements 3 1 - Exam PHYSICAL EXAMINATION: GENERAL: The patient is alert and oriented x3, not in any acute distress. Well developed, well nourished. HEENT: Pupils are round and equally reacting to light. EOMI. No scleral icterus. No conjunctival pallor. Normocephalic, atraumatic. No pharyngeal erythema. No thyromegaly. CARDIOVASCULAR: S1 and S2 present. No murmurs, rubs, or gallops. PULMONARY: Chest is clear to auscultation, no wheezing or crackles. ABDOMEN: Soft, nontender, nondistended, normoactive bowel sounds. No palpable organomegaly. MUSCULOSKELETAL: No joint swelling or deformity. EXTREMITIES: No cyanosis, clubbing, or pedal edema. NEUROLOGICAL: Gross neurological examination did not reveal any focal deficits. SKIN: No rashes. - Labs CBC & Chem 7: 07/05/18 09:20 07/04/18 07:35 Labs: Abnormal Lab Results - Last 24 Hours (Table) 07/05/18 Range/Units 09:20 RBC 3.23 L (3.80-5.40) m/uL Hgb 9.1 L (11.4-16.0) gm/dL Hct 29.8 L (34.0-46.0) % MCHC 30.5 L (31.0-37.0) g/dL Microbiology - Last 24 Hours (Table) 07/02/18 04:15 Blood Culture - Preliminary Blood No Growth after 72 hours Assessment and Plan Plan: -Partial small bowel obstruction with a mass in the ascending, partial small bowel obstruction resolved and patient has an ulcerating mass on colonoscopy in the ascending colon which was dilated with Dinorah ink stain and patient will go for laparotomy as mentioned above patient is a low to intermediate risk for laparotomy. Rest and benefits were explained to the patient patient agrees with the risk and agreeable to go for the surgery. -Hyperlipidemia : patient will be resumed on a statin . -Osteoporosis -Mildly elevated lipase: Suspicion is extremely low for pancreatitis is a nonspecific lipase elevation DVT prophylaxis with subcutaneous heparin and GI prophylaxis with Pepcid
[2018-07-05] MEDS ORDERED: fentaNYL (PF) 50 MCG/ML 2 ML AMP IVP PRN (19:11)
[2018-07-05] MEDS ORDERED: fentaNYL (PF) 50 MCG/ML 2 ML AMP IV PRN (19:11)
[2018-07-05] MEDS ORDERED: MIDAZOLAM (PF) 2 MG/2 ML VIAL IV PRN (19:11)
[2018-07-05] MEDS ORDERED: DEXAMETHASONE SOD PHOSPHATE 10 MG/ML 1 ML VIAL IV ONE (19:11)
[2018-07-06] MEDS: ERYTHROMYCIN 250 MG TAB PO SCH (00:26)
[2018-07-06] MEDS: HEPARIN SODIUM,PORCINE 5,000 UNIT/ML 1 ML VIAL SQ SCH ×2 (07:44→20:33)
[2018-07-06 08:09] LABS: HCT 30.1 % (34.0-46.0); HGB 9.1 gm/dL (11.4-16.0); Hypochromasia Marked; MCHC 30.2 g/dL (31.0-37.0); MCV 92.7 fL (80.0-100.0); Mean Platelet Volume 6.7; Platelet Count 240 k/uL (150-450); RBC 3.25 m/uL (3.80-5.40); RDW 14.2 % (11.5-15.5); WBC 8.9 k/uL (3.8-10.6)
[2018-07-06 08:16] LABS: Anion Gap 6 mmol/L; Blood Urea Nitrogen 6 mg/dL (7-17); Calcium 7.4 mg/dL (8.4-10.2); Carbon Dioxide 24 mmol/L (22-30); Chloride 108 mmol/L (98-107); Glucose 65 mg/dL (74-99); Potassium 3.6 mmol/L (3.5-5.1); Sodium 138 mmol/L (137-145)
--- NOTE | 2018-07-06 09:40 | P.PN ---
Progress Note - Text Progress Note Date: 07/06/18 Patient and family without new questions. We'll proceed with surgery.
[2018-07-06] MEDS ORDERED: metroNIDAZOLE-NS PMX 500 MG in SALINE 100 100ML.BAG IVPB ONE (09:45)
[2018-07-06] MEDS ORDERED: ceFAZolin IN SWFI 2 GM/20 ML SYRINGE IVP ONE (09:45)
[2018-07-06] MEDS ORDERED: MIDAZOLAM 2 MG/2 ML VIAL IVP ONE (09:45)
[2018-07-06] MEDS ORDERED: LACTATED RINGERS 1,000 ML IV ONE (10:00)
[2018-07-06] MEDS ORDERED: SODIUM CHLORIDE 0.9% 1,000 ML IV ONE (10:00)
[2018-07-06] MEDS ORDERED: ROCURONIUM BROMIDE 10 MG/ML 10 ML VIAL IV ONE (10:01)
[2018-07-06] MEDS ORDERED: DEXAMETHASONE SOD PHOS (MDV) 100 MG/10 ML VIAL ONE (10:01)
[2018-07-06] MEDS ORDERED: ONDANSETRON 4 MG/2 ML VIAL ONE (10:01)
[2018-07-06] MEDS ORDERED: NEOSTIGMINE 1 MG/ML 10 ML VIAL ONE (10:01)
[2018-07-06] MEDS ORDERED: PROPOFOL 10 MG/ML 20 ML VIAL IV ONE (10:01)
[2018-07-06] MEDS ORDERED: LIDOCAINE 1% INJ 10MG/ML (20 ML MDV) ONE (10:01)
[2018-07-06] MEDS ORDERED: ROPIVACAINE 5 MG/ML 30 ML VIAL ONE (10:01)
[2018-07-06] MEDS ORDERED: fentaNYL (PF) 50 MCG/ML 2 ML AMP ONE (10:01)
[2018-07-06] MEDS ORDERED: GLYCOPYRROLATE 0.2 MG/ML 2 ML VIAL ONE (10:01)
--- NOTE | 2018-07-06 10:03 | P.ONQ ---
Anesthesiology Proc Note - PNB - Peripheral Nerve Block Performed Bilateral Transversus Abdominis Time Out Performed: Yes Procedure Start Time: 09:45 Procedure Stop Time: 09:50 Indication: Acute Post-Operative Pain, Analgesia, Requested by physician Sedation Type: Sedate with meaningful contact maintained Preparation: Sterile Prep Position: Supine Catheter: None Needle Types: On-Q Needle Size: 50mm (2") Needle Gauge: 21 Technique: Ultrasound Injectate: Other (see comment) (0.375% ropivacaine 20cc each side) Blood Aspirated: No Pain Paresthesia on Injection Noted: No Resistance on Injection: Normal Events: Uneventful and Well Tolerated
[2018-07-06] MEDS ORDERED: SODIUM CHLORIDE 0.9% 50 ML with ceFAZolin 2,000 MG IV ONE ×2 (10:25)
[2018-07-06] MEDS ORDERED: BUPIVACAIN-EPI 0.5%-1:200,000 30 ML VIAL SQ ONE ×2 (10:26)
--- NOTE | 2018-07-06 11:31 | P.OP ---
Date of Procedure: 07/06/18 Preoperative Diagnosis: colon tumor with obstruction Postoperative Diagnosis: same Procedure(s) Performed: laparoscopic-assisted right hemicolectomy Anesthesia: DANII Surgeon: Janneth Nair Estimated Blood Loss (ml): 50 Pathology: other (right colon) Condition: stable Disposition: PACU Indications for Procedure: patient presented with partial bowel obstruction and was found to have a tumor in the ascending colon Description of Procedure: the patient's taken the operative suite where she is prepped and draped in the usual sterile manner under general endotracheal anesthetic. A small incision is made in the left lateral abdomen. The anterior fascia was incised the muscle was split posterior fascia and peritoneum were incised. A finger sweep was carried out. A balloon trocar was inserted and pneumoperitoneum was established with CO2 gas. Sites are chosen for accessory trochars needs are placed through small skin incisions. The mid ascending colon did appear to have a mass effect. There was Dinorah ink noted. The liver, diaphragm, large and small bowel were otherwise normal where they were seen. The terminal ileum was examined and was very mobile. The colon was then mobilized along the right paracolic gutter. The hepatic flexure was taken down and dissection was carried out to the mid transverse colon. once the colon was adequately mobilized, a small infraumbilical incision was made. The terminal ileum was brought up through the incision. On opening was made in the mesentery and a SOM stapler was placed and fired. The mesentery was then taken down either using harmonic scissors or the larger vessels were clamped, cut, tied with 0 Vicryl suture. Dissection was carried out to the site on the transverse colon for resection. The bowel there was similarly divided with a SOM stapler and the specimen was passed off. The antimesenteric border of the terminal ileum was tacked to the transverse colon using 3-0 Vicryl sutures. A opening was made in each limb of the bowel and a SOM stapler was placed and fired. The anastomotic line appeared hemostatic. The remaining enteric defect was closed with a TA stapler. The staple line was reinforced with 3-0 Vicryl Lembert sutures. There was a good anastomosis to finger palpation. The mesentery was wrapped approximated with 0 Vicryl. Gloves were changed. The bowel was dropped back into the abdominal cavity and lay without undue tension. The fascia and peritoneum were closed with 0 Vicryl. the larger trocar sites were closed with 0 Vicryl.the skin was approximated with aminata. Sterile dressings were applied. She tolerated the procedure without difficulty and was taken recovery room in satisfactory condition. According to or personnel, WERE correct.
[2018-07-06] MEDS: LACTATED RINGERS 1,000 ML IV SCH ×2 (13:16→20:58)
[2018-07-06] MEDS ORDERED: HYDROmorphone 1 MG/ML 1 ML SYRINGE IVP PRN (13:41)
[2018-07-06] MEDS: SODIUM CHLORIDE 0.9% 1,000 ML IV SCH (17:35)
[2018-07-06] MEDS: HYDROmorphone 0.5 MG/0.5 ML SYRINGE IVP PRN (20:26)
[2018-07-06] MEDS: metroNIDAZOLE-NS PMX 500 MG in SALINE 1 100ML.BAG IVPB SCH (20:33)
[2018-07-06] MEDS: ceFAZolin IN SWFI 2 GM/20 ML SYRINGE IVP SCH (20:33)
--- NOTE | 2018-07-06 20:55 | PN ---
PROGRESS NOTE DATE OF SERVICE: 07/06/2018 I am covering for Dr. Alexander, This 87-year-old woman who was admitted with partial small bowel obstruction underwent laparoscopic-assisted right hemicolectomy by Dr. Nair. The patient is being closely monitored. Patient is sedated. PAST MEDICAL HISTORY: Reviewed. REVIEW OF SYSTEM: Could not be taken. CURRENT MEDICATIONS: Reviewed and include: 1. Aspirin 81 mg. 2. Kefzol 2 g IV q.8 hours. 3. Ventolin. 4. Heparin subcu b.i.d. 5. Dilaudid p.r.n. 6. Reglan. 7. Narcan. 8. Zofran. PHYSICAL EXAM: Patient is sedated. Pulse is 83, blood pressure 130/73, respirations 16, temperature 97.2, pulse ox 98% on room air. HEENT: Conjunctivae normal. Oral mucosa moist. Neck is no jugular venous distention. No carotid bruit. No lymph node enlargement. CARDIOVASCULAR: S1, S2. RESPIRATORY: Breath sounds diminished in the bases. A few scattered rhonchi. ABDOMEN: Soft, status post surgery. LEGS: No edema. NERVOUS SYSTEM: No focal deficits. LABS: WBC 8, hemoglobin 9.2. Sodium 138, other labs are reviewed. ASSESSMENT: 1. Acute bowel obstruction secondary to colonic tumor, status post laparoscopic- assisted right hemicolectomy. 2. Hyperlipidemia. 3. Osteoporosis. 4. Elevated amylase and lipase, etiology uncertain. 5. Mild hypocalcemia. 6. History of section. 7. History of perforated appendicitis. 8. Hyperlipidemia. RECOMMENDATIONS AND DISCUSSION: I recommend to continue current management and treatment otherwise closely follow. Monitor fluid and electrolytes balance closely. Symptomatic treatment. Ensure oxygenation. DVT prophylaxis. CT scan showed dilated cecum and apple-core lesion, possibly await biopsy report. Prognosis extremely guarded. Closely follow with Surgery, Dr. Nair. Further recommendations to follow. MMODL / IJN: [id number] /
[2018-07-07] MEDS: metroNIDAZOLE-NS PMX 500 MG in SALINE 1 100ML.BAG IVPB SCH (03:32)
[2018-07-07] MEDS: ceFAZolin IN SWFI 2 GM/20 ML SYRINGE IVP SCH (03:32)
[2018-07-07] MEDS: SODIUM CHLORIDE 0.9% 1,000 ML IV SCH ×2 (03:33→21:24)
[2018-07-07] MEDS: HYDROmorphone 0.5 MG/0.5 ML SYRINGE IVP PRN ×2 (04:09→16:49)
[2018-07-07] MEDS: ASPIRIN 81 MG PO SCH (08:21)
[2018-07-07] MEDS: HEPARIN SODIUM,PORCINE 5,000 UNIT/ML 1 ML VIAL SQ SCH ×2 (08:21→21:24)
--- NOTE | 2018-07-07 13:56 | P.PN ---
Subjective Progress Note Date: 07/07/18 Principal diagnosis: Obstructing colon tumor, status post right hemicolectomy The patient's postoperative day 1 from a laparoscopic-assisted right hemicolectomy. She's doing fairly well. No nausea or vomiting. She is hungry. Pain is controlled but the pain medication makes her very sedated. Complaining of a dry mouth Objective - Vital Signs Vital signs: Vital Signs Temp 98.1 F 07/07/18 08:24 Pulse 82 07/07/18 08:24 Resp 16 07/07/18 08:24 BP 122/64 07/07/18 08:24 Pulse Ox 92 L 07/07/18 08:24 Intake & Output 07/06/18 07/07/18 07/07/18 18:59 06:59 18:59 Intake Total 1400 450 Output Total 385 Balance 1015 450 Weight 47.174 kg Intake: IV 800 Intake, IV Titration 600 450 Amount Sodium Chloride 0.9% 1, 600 450 000 ml @ 75 mls/hr IV . [id number] [facility] Rx#:[id number] Output: Urine 375 Estimated Blood Loss 10 Other: Voiding Method Toilet # Voids 2 # Bowel Movements 4 - Constitutional General appearance: Present: cooperative, no acute distress - Respiratory Respiratory: bilateral: CTA - Cardiovascular Rhythm: regular - Gastrointestinal General gastrointestinal: Present: normal bowel sounds, soft Localized gastrointestinal: surgical scar: diffuse (Dressings are intact clean and dry) - Labs CBC & Chem 7: 07/06/18 07:46 07/06/18 07:46 Labs: Microbiology - Last 24 Hours (Table) 07/02/18 04:15 Blood Culture - Preliminary Blood No Growth after 120 hours Assessment and Plan (1) Colon tumor Current Visit: Yes Status: Acute Code(s): D49.0 - NEOPLASM OF UNSPECIFIED BEHAVIOR OF DIGESTIVE SYSTEM SNOMED Code(s): 700337254 Plan: The patient's doing fairly well. We'll start her on a diet. Encourage her to get out of bed. We'll give her some oral tramadol as the Dilaudid seems to be causing her excessive sedation. Otherwise she is progressing well.
[2018-07-07] MEDS: traMADol 50 MG TAB PO PRN (14:33)
[2018-07-07] MEDS: ONDANSETRON 4 MG/2 ML VIAL IVP PRN (16:49)
[2018-07-07 19:11] LABS: ALT 35 U/L (9-52); AST 38 U/L (14-36); Albumin 2.7 g/dL (3.5-5.0); Alkaline Phosphatase 45 U/L (38-126); Amylase 59 U/L (30-110); Anion Gap 7 mmol/L; Blood Urea Nitrogen 5 mg/dL (7-17); Calcium 7.6 mg/dL (8.4-10.2); Carbon Dioxide 27 mmol/L (22-30); Chloride 102 mmol/L (98-107); Glucose 87 mg/dL (74-99); Lipase 165 U/L (23-300); Potassium 3.7 mmol/L (3.5-5.1); Sodium 136 mmol/L (137-145); Total Bilirubin 0.2 mg/dL (0.2-1.3); Total Protein 5.2 g/dL (6.3-8.2)
--- NOTE | 2018-07-07 21:15 | PN ---
PROGRESS NOTE DATE OF SERVICE: 07/07/2018 This 87-year-old woman who was admitted with acute bowel obstruction, underwent laparoscopic right hemicolectomy. No chest pain. No palpitations. The patient's ( ) improved. The patient complained of some abdominal pain. EXAM: Alert and oriented x2. Pulse 82, blood pressure 126/60, respiration 16, temperature 98.1, pulse ox 98% on room air. HEENT: Conjunctivae normal. Oral mucosa moist. NECK: No jugular venous distention. No lymph node enlargement. CARDIOVASCULAR: S1, S2. RESPIRATORY: Diminished breath sounds at the bases. A few scattered rhonchi. ABDOMEN: Soft, nontender. LEGS: No swelling. NERVOUS SYSTEM: No focal deficits. LAB STUDIES: WBC 8.9, hemoglobin 9.2, sodium 130, potassium 3.6. ASSESSMENT: 1. Acute bowel obstruction secondary to colonic tumor status post laparoscopic- assisted right hemicolectomy. 2. Hyperlipidemia. 3. Osteoporosis. 4. Elevated amylase and lipase, etiology uncertain. 5. Mild hypocalcemia. 6. History of section. 7. History of perforated appendicitis. 8. Hyperlipidemia. RECOMMENDATIONS: Continue current medications, continue to monitor, continue symptomatic treatment. I would also recommend incentive spirometry, DVT prophylaxis. I would also recommend repeat amylase and lipase. Guarded prognosis. Further recommendations to follow. MMODL / IJN: [id number] /
[2018-07-07] MEDS: LACTATED RINGERS 1,000 ML IV SCH (21:24)
[2018-07-08 07:15] LABS: Basophils % (A) 0 %; Eosinophils # (A) 0.1 k/uL (0-0.7); Eosinophils % (A) 1 %; HCT 30.5 % (34.0-46.0); HGB 9.2 gm/dL (11.4-16.0); Hypochromasia Moderate; Lymphocytes # (A) 0.8 k/uL (1.0-4.8); Lymphocytes % (A) 7 %; MCH 27.7 pg (25.0-35.0); MCHC 30.1 g/dL (31.0-37.0); MCV 92.2 fL (80.0-100.0); Mean Platelet Volume 6.6; Monocytes # (A) 0.5 k/uL (0-1.0); Monocytes % (A) 4 %; Neutrophils # (A) 9.5 k/uL (1.3-7.7); Neutrophils % (A) 87 %; Platelet Count 245 k/uL (150-450); RDW 14.3 % (11.5-15.5); WBC 10.9 k/uL (3.8-10.6)
[2018-07-08] MEDS: ASPIRIN 81 MG PO SCH (07:55)
[2018-07-08] MEDS: HEPARIN SODIUM,PORCINE 5,000 UNIT/ML 1 ML VIAL SQ SCH ×2 (07:55→22:31)
[2018-07-08] MEDS: HYDROmorphone 0.5 MG/0.5 ML SYRINGE IVP PRN (07:56)
[2018-07-08] MEDS: SODIUM CHLORIDE 0.9% 1,000 ML IV SCH ×2 (07:57→22:23)
--- NOTE | 2018-07-08 13:08 | P.PN ---
Subjective Progress Note Date: 07/08/18 Principal diagnosis: Obstructing colon tumor, status post right hemicolectomy The patient is postoperative day 2 from a laparoscopic-assisted right hemicolectomy for an obstructing colon tumor. She is doing well. Tolerating a diet. She's been up and ambulating in the room. Having some expected incisional pain. No nausea or vomiting. Passing flatus. Objective - Vital Signs Vital signs: Vital Signs Temp 97.8 F 07/08/18 06:49 Pulse 78 07/08/18 06:49 Resp 12 07/08/18 06:49 BP 145/74 07/08/18 06:49 Pulse Ox 97 07/08/18 06:49 Intake & Output 07/07/18 07/08/18 07/08/18 18:59 06:59 18:59 Intake Total 440 975 Balance 440 975 Weight 47.174 kg Intake: Intake, IV Titration 875 Amount Sodium Chloride 0.9% 1, 875 000 ml @ 75 mls/hr IV . [id number] [facility] Rx#:[id number] Oral 240 100 Other 200 Other: Voiding Method Toilet Toilet # Voids 3 2 - Constitutional General appearance: Present: cooperative, no acute distress - Respiratory Respiratory: bilateral: CTA - Cardiovascular Rhythm: regular - Gastrointestinal General gastrointestinal: Present: normal bowel sounds, soft (Softly distended) Localized gastrointestinal: surgical scar: diffuse (Incisions are healing without cellulitis) - Labs CBC & Chem 7: 07/08/18 06:49 07/07/18 18:27 Labs: Abnormal Lab Results - Last 24 Hours (Table) 07/07/18 07/08/18 Range/Units 18:27 06:49 WBC 10.9 H (3.8-10.6) k/uL RBC 3.30 L (3.80-5.40) m/uL Hgb 9.2 L (11.4-16.0) gm/dL Hct 30.5 L (34.0-46.0) % MCHC 30.1 L (31.0-37.0) g/dL Neutrophils # 9.5 H (1.3-7.7) k/uL Lymphocytes # 0.8 L (1.0-4.8) k/uL Sodium 136 L (137-145) mmol/L BUN 5 L (7-17) mg/dL Calcium 7.6 L (8.4-10.2) mg/dL AST 38 H (14-36) U/L Total Protein 5.2 L (6.3-8.2) g/dL Albumin 2.7 L (3.5-5.0) g/dL Microbiology - Last 24 Hours (Table) 07/02/18 04:15 Blood Culture - Final Blood No Growth after 144 hours Assessment and Plan (1) Colon tumor Current Visit: Yes Status: Acute Code(s): D49.0 - NEOPLASM OF UNSPECIFIED BEHAVIOR OF DIGESTIVE SYSTEM SNOMED Code(s): 689994229 Plan: The patient is progressing well. She is on a diet. Encouraged her to ambulate in the halls and continue the incentive spirometry. Anticipate she should be ready for discharge in the next 1-2 days. Await pathology. Clinically improving versus preop
--- NOTE | 2018-07-08 17:51 | XR ---
EXAMINATION TYPE: XR chest 1V portable DATE OF EXAM: 07/08/2018 Comparison: None Clinical History: 87 year-old female follow-up atelectasis Findings: Heart is mildly enlarged with diffuse interstitial prominence. Prominent left basilar opacity and ret rocardiac density. Curvilinear atelectasis right base. Trace right effusion difficult to exclude give n blunted costophrenic angles. Impression: 1. Mild cardiomegaly with interstitial changes. Possible mild CHF. 2. Moderate left and trace right pleural effusions. Adjacent atelectasis and/or consolidation, pronou nced at the left base.
--- NOTE | 2018-07-08 19:19 | PN ---
PROGRESS NOTE DATE OF SERVICE: 07/08/2018 This 87-year-old woman was admitted with acute bowel obstruction, had laparoscopic right hemicolectomy. Patient improving significantly. No chest pain. No palpitations. No fever. The final biopsy reports are pending at this time. EXAM: Alert and oriented x3. The pulse is 77, blood pressure 118/74, respiration 21, temperature 99.1, pulse ox 91 percent on room air. HEENT: Conjunctivae normal. NECK: No jugular venous distention. CARDIOVASCULAR: S1. S2. RESPIRATORY: Breath sounds diminished in the bases. A few scattered rhonchi and crackles. ABDOMEN is soft status post surgery. Nontender. No mass palpable. LEGS: No edema. No swelling. NERVOUS SYSTEM: No focal deficits. LABS: Labs are at this time shows WBC 10.8, hemoglobin 9.6. Sodium 136. ASSESSMENT: 1. Acute bowel obstruction secondary to colonic tumor, status post laparoscopic assisted right hemicolectomy. 2. Hyperlipidemia. 3. Mild hypoxia, possible atelectasis. 4. Osteoporosis. 5. Elevated amylase and lipase, etiology uncertain. 6. Mild hypocalcemia. 8. History of perforated appendicitis. 9. Hyperlipidemia. RECOMMENDATIONS AND DISCUSSION: Recommend to continue current medications, management and symptomatic treatment. Recommend a portable chest x-ray stat. Incentive spirometry. Continue the rest of medications. DVT prophylaxis. Closely follow with surgery. Further recommendations to follow. MMODL / SRININ: [id number] / MTDD
[2018-07-08] MEDS: LACTATED RINGERS 1,000 ML IV SCH (22:22)
[2018-07-09] MEDS: HEPARIN SODIUM,PORCINE 5,000 UNIT/ML 1 ML VIAL SQ SCH ×2 (09:26→20:55)
[2018-07-09] MEDS: ASPIRIN 81 MG PO SCH (09:27)
--- NOTE | 2018-07-09 11:03 | P.PN ---
Subjective Progress Note Date: 07/09/18 Principal diagnosis: Obstructing colon tumor, status post right hemicolectomy The patient is status post laparoscopic right hemicolectomy for an obstructing colon tumor. She's tolerating a diet. No nausea or vomiting. No bloating as she was having preoperatively. Mild incisional pain with activity. She is using her incentive spirometry but only getting it to about 500-750 mL Objective - Vital Signs Vital signs: Vital Signs Temp 97.5 F L 07/09/18 09:33 Pulse 84 07/09/18 09:33 Resp 16 07/09/18 09:33 BP 121/61 07/09/18 09:33 Pulse Ox 91 L 07/09/18 09:33 Intake & Output 07/08/18 07/09/18 07/09/18 18:59 06:59 18:59 Intake Total 850 236 Balance 850 236 Weight 47.174 kg Intake: Intake, IV Titration 50 Amount Sodium Chloride 0.9% 50 50 ml @ 0 mls/hr IV .STK-MED ONE with ceFAZolin 2,000 mg Rx#:[id number] Oral 800 236 Other: Voiding Method Toilet # Voids 1 - Constitutional General appearance: Present: cooperative, no acute distress - Respiratory Respiratory: bilateral: CTA, diminished (Mildly at the bases) - Cardiovascular Rhythm: regular - Gastrointestinal General gastrointestinal: Present: normal bowel sounds, soft Localized gastrointestinal: surgical scar: diffuse (Incisions are healing without cellulitis. Mild ecchymosis) - Labs CBC & Chem 7: 07/08/18 06:49 07/07/18 18:27 Labs: Microbiology - Last 24 Hours (Table) 07/02/18 04:15 Blood Culture - Final Blood No Growth after 144 hours Assessment and Plan (1) Colon tumor Current Visit: Yes Status: Acute Code(s): D49.0 - NEOPLASM OF UNSPECIFIED BEHAVIOR OF DIGESTIVE SYSTEM SNOMED Code(s): 399867526 Plan: Increase activity as tolerated. When she and her daughter felt comfortable with her activity level she would be ready for discharge. Possibly later today or tomorrow. I'll see her in the office next week for staple removal.
[2018-07-09] MEDS ORDERED: FUROSEMIDE 10 MG/ML 2 ML VIAL IV ONE (12:47)
[2018-07-09] MEDS ORDERED: IPRATROPIUM-ALBUTEROL 3 ML NEB INHALATION STA (12:51)
[2018-07-09] MEDS: traMADol 50 MG TAB PO PRN ×2 (13:46→22:27)
[2018-07-09] MEDS: SODIUM CHLORIDE 0.9% 1,000 ML IV SCH (13:47)
[2018-07-09] MEDS: LACTATED RINGERS 1,000 ML IV SCH (20:44)
[2018-07-10] MEDS: SODIUM CHLORIDE 0.9% 1,000 ML IV SCH ×2 (00:29→12:06)
--- NOTE | 2018-07-10 07:35 | PN ---
PROGRESS NOTE DATE OF SERVICE: 07/09/2018 This 87-year-old woman who was admitted with bowel obstruction had surgery. The patient being closely monitored. No chest pain. No palpitations. No fever. EXAM: Alert and oriented x3. Pulse is 101. Blood pressure 119/80. Respirations 18. Temperature 98.8, pulse ox 98% on room air. HEENT: Conjunctivae normal. NECK: No jugular venous distention. CARDIOVASCULAR: S1, S2 muffled. RESPIRATION: Breath sounds diminished in the bases. Few scattered rhonchi. No crackles. ABDOMEN soft. Status post surgery. CENTRAL NERVOUS SYSTEM: No focal deficits. LAB STUDIES: WBC 10.9, hemoglobin 9.2. ASSESSMENT: 1. Acute bowel obstruction secondary to chronic tumor, status post laparoscopic- assisted right hemicolectomy. 2. Hyperlipidemia. 3. Possible atelectasis. 4. Mild hypoxia, possible atelectasis. 5. Osteoporosis. 6. Elevated amylase and lipase etiology uncertain. 7. Mild hypocalcemia. 8. History of perforated appendicitis. 9. Hyperlipidemia. RECOMMENDATIONS AND DISCUSSION: Recommend to continue current medications, management and continue monitoring and symptomatic treatment. Otherwise at this time, I would recommend course of bronchodilators. Further recommendations to follow. Repeat labs will be also ordered. MMODL / IJN: [id number] /
[2018-07-10] MEDS: IPRATROPIUM-ALBUTEROL 3 ML NEB INHALATION SCH ×4 (08:02→20:11)
[2018-07-10] MEDS: traMADol 50 MG TAB PO PRN (09:11)
[2018-07-10] MEDS: HEPARIN SODIUM,PORCINE 5,000 UNIT/ML 1 ML VIAL SQ SCH ×2 (09:11→20:15)
[2018-07-10] MEDS: ASPIRIN 81 MG PO SCH (09:11)
--- NOTE | 2018-07-10 10:29 | CDI ---
Documentation Clarification Form Date: 07/10/2018 10:19:59 AM From: Rani NortonRACHEL, CCDS Admit Date: 07/02/2018 4:31:00 AM Patient Name: Pavithra Frank Visit Number: [id number] Discharge Date: ATTENTION: The Clinical Documentation Specialists (CDI) and [facility] Coding Staff appreciate your assistance in clarifying documentation. Please respond to the clarification below the line at the bottom and electronically sign. The CDI & [facility] Coding staff will review the response and follow-up if needed. Please note: Queries are made part of the Legal Health Record. If you have any questions, please contact the author of this message via ITS. Dr. 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 Per the postoperative progress notes: .Acute bowel obstruction secondary to chronic tumor, status post laparoscopic-assisted right hemicolectomy." Patient history/risk factors: Clinical Indicators: Presented with abdominal pain, diarrhea, nausea & vomiting. RAD: CT Abdomen/Pelvis: parital small bowel obstruction along with a mass in the ascending colon with dilated cecum & small bowel. Treatment: Colonoscopy w/bx, right hemicolectomy (pathology pending), IV fluid bolus, IV Ms, IV Zofran, Heparin sq, IV Tylenol, IV Reglan, IV Flagyl, IV Dilaudid, IV Kefzol. In your professional opinion, do you agree with the pathology report? Please also document your opinion & findings. Yes, please specify pathology findings. No Other (please specify) Unable to determine (Last Revision: April 2017) Invasive moderately differentiated adenocarcinoma. MTDD
--- NOTE | 2018-07-10 11:02 | P.PN ---
Subjective Progress Note Date: 07/10/18 Principal diagnosis: Obstructing colon tumor, status post right hemicolectomy The patient is doing well. She is ambulating better. Tolerating a diet. Passing flatus. Pain is controlled with oral pain medication. Objective - Vital Signs Vital signs: Vital Signs Temp 98.0 F 07/10/18 07:50 Pulse 78 07/10/18 07:50 Resp 12 07/10/18 08:05 BP 156/71 07/10/18 07:50 Pulse Ox 94 L 07/10/18 07:50 Intake & Output 07/09/18 07/10/18 07/10/18 18:59 06:59 18:59 Intake Total 712 450 Balance 712 450 Weight 47.174 kg Intake: Oral 712 450 Other: Voiding Method Toilet # Voids 1 1 - Constitutional General appearance: Present: cooperative, no acute distress - Gastrointestinal General gastrointestinal: Present: normal bowel sounds, soft Localized gastrointestinal: surgical scar: diffuse (Incisions without cellulitis ) - Labs CBC & Chem 7: 07/08/18 06:49 07/07/18 18:27 Assessment and Plan (1) Colon tumor Current Visit: Yes Status: Acute Code(s): D49.0 - NEOPLASM OF UNSPECIFIED BEHAVIOR OF DIGESTIVE SYSTEM SNOMED Code(s): 158687330 (2) Colon cancer Current Visit: Yes Status: Acute Code(s): C18.9 - MALIGNANT NEOPLASM OF COLON, UNSPECIFIED SNOMED Code(s): 877603069 Plan: Patient is doing well from a surgical standpoint. Her final pathology is pending. Surgically stable for discharge when she is ready from a medical standpoint.
[2018-07-10] MEDS: LACTATED RINGERS 1,000 ML IV SCH (17:05)
--- NOTE | 2018-07-10 18:03 | PN ---
PROGRESS NOTE DATE OF SERVICE: 07/10/2018 This 87-year-old woman who was admitted after bowel resection is being closely monitored. The patient had some atelectasis and hypoxia. After bronchodilators the patient improved significantly. No chest pain. No palpitations. No fever. The surgical biopsy report shows invasive moderately differentiated adenocarcinoma with negative margins. No chest pain. No palpitations. No fever. Past medical history reviewed. REVIEW OF SYSTEMS: CARDIOVASCULAR SYSTEM: No angina, palpitations. RESPIRATORY SYSTEM: As mentioned earlier. GI: As mentioned earlier. : No dysuria or retention. NERVOUS SYSTEM: No numbness, weakness. CURRENT MEDICATIONS: Reviewed. They include: 1. DuoNeb q.i.d. and p.r.n. 2. Aspirin 81 mg. 3. Heparin 5000 units subcutaneously b.i.d. 4. Dilaudid p.r.n. 5. Lactated Ringer's. 6. Reglan. 7. Narcan. 8. Zofran. 9. Ultram. Please refer to the medication reconciliation. PHYSICAL EXAMINATION: Alert and oriented x3. Pulse is 97, blood pressure 113/75, respiration 16, temperature 97.9, pulse ox 99% on room air. HEENT: Conjunctivae normal. NECK: No jugular venous distention. CARDIOVASCULAR SYSTEM: S1, S2 muffled. RESPIRATORY SYSTEM: Breath sounds diminished at the bases. Bilateral scattered rhonchi and crackles. ABDOMEN: Soft, non-tender. LEGS: No edema. No swelling. NERVOUS SYSTEM: No focal deficit. LABS: WBC 10.9, hemoglobin 9.2. ASSESSMENT: 1. Acute bowel obstruction secondary to colonic tumor possibly invasive moderately differentiated adenocarcinoma. 2. Hyperlipidemia. 3. Possible atelectasis and mild hypoxia secondary to atelectasis, improved. 4. Osteoporosis. 5. Increased amylase, lipase of undetermined etiology. 6. Mild hypocalcemia. 7. History of perforated appendicitis. 8. Hyperlipidemia. RECOMMENDATIONS AND DISCUSSION: I recommend to continue current medication, continue with the monitoring, symptomatic treatment. Otherwise, at this time I would recommend continuing with incentive spirometry and bronchodilators at home. Continue the rest of the medications per surgical recommendations. Also recommend close followup with Dr. Alexander in the outpatient setting. Further recommendations to follow. MMODL / IJN: [id number] /
[2018-07-11] MEDS: SODIUM CHLORIDE 0.9% 1,000 ML IV SCH (00:29)
[2018-07-11 07:57] VITALS: BP 135/78; RESP 12; TEMP 99
[2018-07-11] MEDS: IPRATROPIUM-ALBUTEROL 3 ML NEB INHALATION SCH ×2 (08:27→11:43)
[2018-07-11] MEDS: ASPIRIN 81 MG PO SCH (08:28)
[2018-07-11] MEDS: HEPARIN SODIUM,PORCINE 5,000 UNIT/ML 1 ML VIAL SQ SCH (08:29)
[2018-07-11 09:24] LABS: Basophils % (A) 0 %; Eosinophils # (A) 0.4 k/uL (0-0.7); Eosinophils % (A) 5 %; HGB 8.8 gm/dL (11.4-16.0); Hypochromasia Moderate; Lymphocytes # (A) 0.9 k/uL (1.0-4.8); Lymphocytes % (A) 12 %; MCH 28.1 pg (25.0-35.0); MCHC 30.5 g/dL (31.0-37.0); Mean Platelet Volume 6.9; Monocytes # (A) 0.3 k/uL (0-1.0); Monocytes % (A) 5 %; Neutrophils # (A) 5.7 k/uL (1.3-7.7); Neutrophils % (A) 78 %; Platelet Count 271 k/uL (150-450); RBC 3.15 m/uL (3.80-5.40); RDW 14.5 % (11.5-15.5); WBC 7.3 k/uL (3.8-10.6)
--- NOTE | 2018-07-11 10:40 | P.PN ---
Progress Note - Text Progress Note Date: 07/11/18 The patient seen on rounds. She's doing well. Doing better with her incentive spirometry. Tolerating a diet. She did have a bowel movement. Abdomen is soft, positive bowel sounds, incisions are healing without cellulitis or infection. No significant bruising. Assessment status post right hemicolectomy for colon cancer Plan: The patient surgically stable for discharge. Her colon tumor showed no evidence of metastatic disease. Negative for metastatic disease and 25 lymph nodes. We'll likely need no further treatment. I will see her in the office in one week
[2018-07-11 11:54] VITALS: PULSE 80
--- NOTE | 2018-07-12 07:32 | DS ---
DISCHARGE SUMMARY DATE OF SERVICE: 07/11/2018 FINAL DIAGNOSES: 1. Acute bowel obstruction secondary to colonic tumor, possible invasive moderate diffuse adenocarcinoma. 2. Hyperlipidemia. 3. Possible atelectasis. Mild hypoxia secondary to atelectasis, improved. 4. Osteoporosis. 5. Increased amylase, lipase 120. 6. Mild hypocalcemia. 7. History of perforated appendicitis. DISCHARGE DISPOSITION: The patient will be discharged in a stable condition with guarded prognosis. HISTORY OF PRESENT ILLNESS: This is an 87-year-old woman with a past medical history admitted with acute bowel obstruction. Patient has possibly colonic tumor with biopsy, came back positive for invasive moderately diminished adenocarcinoma. The patient was seen by Dr. Nair. The patient improved significantly. On exam, vitals are stable. CARDIOVASCULAR SYSTEM: S1, S2. ABDOMEN: Soft. NERVOUS SYSTEM: No focal deficits. The patient also had hypoxia and bronchodilators were given. Patient improved significantly. DISCHARGED INSTRUCTIONS: Diet is cardiac diet. FOLLOWUP: Follow up with Dr. Odin Alexander in 2-[address] Nair as advised. MEDICATIONS ARE: 1. Vitamin C 1000 mg p.o. daily. 2. Aspirin 81 mg daily. 3. 1 p.o. daily. 4. Vitamin D3 one thousand daily. 5. Multivitamin 1 p.o. daily. 6. Simvastatin 20 mg q.h.s. 7. Albuterol 2 puffs q.i.d. 8. Ultram 50 mg q.4 to 6 p.r.n. Hematology/Oncology evaluation outpatient per Dr. Alexander. MMANSHULL / SRININ: [id number] /
== END 2018-07-11 15:10 | disposition home or self-care (01) | DRG 330 ==
LOC: EC 02:09 → 4SSUR 04:31
PROVIDERS: ADMIT Internal Medicine; ATTEND Internal Medicine
PROC: 0DBK8ZX Excision of Ascending Colon, Via Natural or Artificial Opening Endoscopic, Diagnostic (ICD-10-PCS; 2018-07-05 14:00)
PROC: 0DTF4ZZ Resection of Right Large Intestine, Percutaneous Endoscopic Approach (ICD-10-PCS; principal; 2018-07-06 09:50)
DX: C18.2 Malignant neoplasm of ascending colon (principal); J98.11 Atelectasis; E78.5 Hyperlipidemia, unspecified; E83.51 Hypocalcemia; I10 Essential (primary) hypertension; K57.30 Diverticulosis of large intestine without perforation or abscess without bleeding; M81.0 Age-related osteoporosis without current pathological fracture; R09.02 Hypoxemia; R74.8 Abnormal levels of other serum enzymes; Z79.82 Long term (current) use of aspirin; Z79.899 Other long term (current) drug therapy; Z85.828 Personal history of other malignant neoplasm of skin; Z82.3 Family history of stroke; Z83.3 Family history of diabetes mellitus
CPT/HCPCS: 36415; 45380; 45381; 71045; 74177; 74270; 80048; 80053; 81001; 82150; 82378; 83690; 85025; 85027; 87040; 88305; 88309; 93005; 94640; 96360; 96361; 99285

== ENCOUNTER 2021-05-07 16:25 | Emergency (ER) | payer MEDICARE, OTHER ==
[2021-05-07 17:00] VITALS: TEMP 98.4
[2021-05-07] MEDS ORDERED: KETOROLAC 15 MG/ML 1 ML VIAL IM STA (17:14)
[2021-05-07] MEDS ORDERED: CYCLOBENZAPRINE 5 MG TAB PO STA (17:14)
[2021-05-07] MEDS ORDERED: LIDOCAINE 5% PATCH TOPICAL SCH (17:15)
--- NOTE | 2021-05-07 17:19 | ED ---
General Adult HPI - General Chief complaint: Extremity Problem,Nontraumatic Stated complaint: Rt Leg Pain Time Seen by Provider: 05/07/21 17:04 Source: patient, family, RN notes reviewed, old records reviewed Mode of arrival: wheelchair Limitations: no limitations - History of Present Illness Initial comments: 89-year-old female presents to the emergency room with family member complaining of right lower back pain that radiates down her right leg to her foot. Patient states that she started having the pain when she got out of bed. She denies any injuries or falls. She does have history of osteoarthritis and has an appointment with Dr. Galdamez on May 17. Patient states that she's been using a combination of Aleve and Tylenol with minimal relief. She denies any bowel or bladder incontinence. Denies any fevers. -: days(s) (3) Location: back, right, lower extremity Radiation: distal Severity scale (1-10): 8 Quality: other (shooting) Improves with: immobilization Worsens with: movement Associated Symptoms: denies other symptoms Treatments Prior to Arrival: NSAID, other (tylenol) - Related Data Home Medications Medication Instructions Recorded Confirmed Ascorbic Acid [Vitamin C] 500 mg PO DAILY 01/24/15 07/02/18 Calcium Carb-Vit D 500Mg-5Mcg 1 tab PO DAILY 01/24/15 07/02/18 [Oscal 500+D 5 Mcg (200 Iu)] Cholecalciferol [Vitamin D3 (25 1,000 unit PO DAILY 01/24/15 07/02/18 Mcg = 1000 Iu)] Multivit-Min/FA/Lycopene/Lut 1 tab PO DAILY 01/24/15 07/02/18 [Centrum Silver Tablet] Simvastatin 20 mg PO HS 01/24/15 07/02/18 Ascorbic Acid [Vitamin C] 1,000 mg PO DAILY 07/02/18 07/02/18 Aspirin [Adult Low Dose Aspirin EC] 81 mg PO DAILY 07/02/18 07/02/18 Cholecalciferol [Vitamin D3 (25 1,000 unit PO DAILY 07/02/18 07/02/18 Mcg = 1000 Iu)] Previous Rx's Medication Instructions Recorded traMADol HCL [Ultram] 50 - 100 mg PO Q4-6H PRN #20 tab 07/09/18 Albuterol Inhaler (Mhu) [Ventolin 2 puff INHALATION QID #1 inhaler 07/11/18 Hfa Inhaler (Mhu)] Lidocaine [Lidoderm 5% Patch] 1 patch TRANSDERM DAILY 20 Days 05/07/21 #20 patch Allergies Allergy/AdvReac Type Severity Reaction Status Date / Time No Known Allergies Allergy Verified 05/07/21 16:56 Review of Systems ROS Statement: Those systems with pertinent positive or pertinent negative responses have been documented in the HPI. ROS Other: All systems not noted in ROS Statement are negative. Past Medical History Past Medical History: Hyperlipidemia Additional Past Medical History / Comment(s): osteoporosis History of Any Multi-Drug Resistant Organisms: None Reported Past Surgical History: Section Additional Past Surgical History / Comment(s): Excision of skin cancer on face 2, laparoscopic appendectomy due to perforated appendicitis Past Anesthesia/Blood Transfusion Reactions: No Reported Reaction Past Psychological History: No Psychological Hx Reported Smoking Status: Never smoker Past Alcohol Use History: None Reported Past Drug Use History: None Reported - Past Family History Father Additional Family Medical History / Comment(s): Father had "heart condition" Mother Family Medical History: CVA/TIA, Diabetes Mellitus General Exam Limitations: no limitations General appearance: alert, in no apparent distress Head exam: Present: atraumatic, normocephalic, normal inspection Neck exam: Present: normal inspection, full ROM. Absent: tenderness, meningismus, lymphadenopathy, thyromegaly Respiratory exam: Present: normal lung sounds bilaterally. Absent: respiratory distress, wheezes, rales, rhonchi, stridor Cardiovascular Exam: Present: normal rhythm, tachycardia, normal heart sounds GI/Abdominal exam: Present: soft, hyperactive bowel sounds. Absent: distended, tenderness, guarding, rebound, rigid Extremities exam: Present: normal inspection, full ROM, normal capillary refill. Absent: tenderness, pedal edema, joint swelling, calf tenderness Back exam: Present: normal inspection. Absent: CVA tenderness (R), CVA tenderness (L), paraspinal tenderness, vertebral tenderness, rash noted Expanded Back exam: Absent: saddle anesthesia Back exam: Sciatic Notch Tenderness: Right, Negative Straight Leg Raising: Left, Right Neurological exam: Present: alert, oriented X3, normal gait Expanded Patient oriented to: Present: person, place, time Speech: Present: fluid speech Motor strength exam: RLE: 5, LLE: 5 Eye Response: (4) open spontaneously Motor Response: (6) obeys commands Verbal Response: (5) oriented [place] Total: 15 Psychiatric exam: Present: normal affect, normal mood Skin exam: Present: warm, dry, intact, normal color. Absent: rash Course Vital Signs 05/07/21 16:56 Temperature 98.4 F Pulse Rate 104 H Respiratory 20 Rate Blood Pressure 159/98 O2 Sat by Pulse 97 Oximetry Medical Decision Making - Medical Decision Making Well-appearing 89-year-old complains of sciatic back pain on the right. Patient has pain to palpation at the right SI notch. She did see her primary care doctor and does have an appointment with Dr Collier on May 27 for this pain. She has been taking Tylenol and Aleve. She was given Toradol and Flexeril in the emergency room along with the Lidoderm patch. She denies any bowel or bladder incontinence, no fevers. No saddle anesthesia. She is able to ambulate. She has no focal neurological deficits. I discussed this case with Dr. Lowery was agreeable to this plan of care. Disposition Clinical Impression: Sciatica Disposition: HOME SELF-CARE Condition: Good Additional Instructions: Take Tylenol and Motrin as needed for pain. Use the Lidoderm patches as prescribed. Keep your appointment with Dr. Clarke in May. Return to the emergency room with any new or worsening symptoms including worsening pain, numbness, tingling or weakness. Prescriptions: Lidocaine [Lidoderm 5% Patch] 1 patch TRANSDERM DAILY 20 Days #20 patch Is patient prescribed a controlled substance at d/c from ED?: No Referrals: Odin Alexander DO [Primary Care Provider] - 1-2 days Time of Disposition: 17:36
[2021-05-07 18:16] VITALS: PULSE 97; RESP 18
[2021-05-07 18:17] VITALS: BP 157/85
== END 2021-05-07 18:26 | disposition home or self-care (01) ==
LOC: EC 16:25
DX: M54.41 Lumbago with sciatica, right side (principal); E78.5 Hyperlipidemia, unspecified; M81.0 Age-related osteoporosis without current pathological fracture; Z79.82 Long term (current) use of aspirin
CPT/HCPCS: 99283; 96372; J1885

== ENCOUNTER 2021-06-08 15:16 | Emergency (ER) | payer MEDICARE, OTHER ==
--- NOTE | 2021-06-08 17:12 | XR ---
EXAMINATION TYPE: XR abdomen 2V DATE OF EXAM: 06/08/2021 COMPARISON: None INDICATION: Abdomen pain TECHNIQUE: Single view abdomen upright view FINDINGS: There is a normal bowel gas pattern. No free air is evident. No suspicious air-fluid levels or differ ential air-fluid levels are present. Psoas margins are normal. No organomegaly is present. Scoliosis through the lumbar spine. IMPRESSION: 1. Unremarkable Abdomen
[2021-06-08 19:58] VITALS: TEMP 97.8
[2021-06-08] MEDS ORDERED: SODIUM CHLORIDE 0.9% 500 ML 500 ML IV STA (20:10)
[2021-06-08] MEDS ORDERED: KETOROLAC 30 MG/ML 1 ML VIAL IVP STA (20:10)
[2021-06-08 20:34] LABS: Basophils % (A) 0 %; Eosinophils # (A) 0.3 k/uL (0-0.7); Eosinophils % (A) 3 %; HGB 13.4 gm/dL (11.4-16.0); Lymphocytes # (A) 1.6 k/uL (1.0-4.8); Lymphocytes % (A) 15 %; MCH 30.3 pg (25.0-35.0); MCHC 32.8 g/dL (31.0-37.0); MCV 92.5 fL (80.0-100.0); Mean Platelet Volume 7.3; Monocytes # (A) 0.7 k/uL (0-1.0); Monocytes % (A) 6 %; Neutrophils # (A) 7.7 k/uL (1.3-7.7); Neutrophils % (A) 74 %; Platelet Count 236 k/uL (150-450); RBC 4.43 m/uL (3.80-5.40); RDW 12.3 % (11.5-15.5); WBC 10.5 k/uL (3.8-10.6)
[2021-06-08 20:45] LABS: Appearance,Urine Clear (Clear); Bilirubin,Urine Negative (Negative); Blood,Urine Trace (Negative); Color,Urine Yellow; Glucose,Urine (UA) Negative (Negative); Hyaline Casts,Urine 1 /lpf (0-2); Ketones,Urine 1+ (Negative); Leukocyte Esterase,Urine Negative (Negative); Mucus,Urine Rare /hpf; Nitrite,Urine Negative (Negative); PH, Urine 5.5 (5.0-8.0); Protein,Urine Negative (Negative); RBC,Urine 7 /hpf (0-5); Specific Gravity,Urine 1.015 (1.001-1.035); Urobilinogen,Urine <2.0 mg/dL (<2.0); WBC,Urine 1 /hpf (0-5)
[2021-06-08 20:47] LABS: ALT 21 U/L (4-34); AST 31 U/L (14-36); African American GFR (CKD) >90 (>60 ml/min/1.73 sqM); Albumin 4.3 g/dL (3.5-5.0); Alkaline Phosphatase 65 U/L (38-126); Amylase 124 U/L (30-110); Anion Gap 8 mmol/L; Blood Urea Nitrogen 17 mg/dL (7-17); Calcium 9.8 mg/dL (8.4-10.2); Carbon Dioxide 28 mmol/L (22-30); Chloride 101 mmol/L (98-107); Glucose 90 mg/dL (74-99); Lipase 189 U/L (23-300); Non-African American GFR(CKD) 79 (>60 ml/min/1.73 sqM); Potassium 4.1 mmol/L (3.5-5.1); Sodium 137 mmol/L (137-145); Total Bilirubin 0.5 mg/dL (0.2-1.3); Total Protein 7.3 g/dL (6.3-8.2)
[2021-06-08 20:48] LABS: INR 0.9 (<1.2); Partial Thromboplastin Time 22.3 sec (22.0-30.0); Prothrombin Time 9.7 sec (9.0-12.0)
--- NOTE | 2021-06-08 21:13 | ED ---
Abdominal Pain HPI - General Chief Complaint: Abdominal Pain Stated Complaint: Abd Pain Time Seen by Provider: 06/08/21 19:45 Source: patient, RN notes reviewed Mode of arrival: ambulatory Limitations: no limitations - History of Present Illness Initial Comments: Patient is an 89-year-old female with history of hyperlipidemia, presenting to the emergency Department with complaints of upper abdominal pain over the past week. She states she's been having intermittent pain which does radiate across her entire upper abdomen over the past week. She states her appetite has been lower secondary to this pain. She states he can get up to an 8/10 currently she rates the pain at 4/10. She denies any nausea or vomiting, no lower abdominal pain. She states she normally has diarrhea secondary to having a portion of her colon removed for colon cancer about 3 years ago. She admits to history of C- section, no other abdominal surgeries. She denies any chest pains, no shortness of breath, no fevers or chills. Patient has no further complaints. Her vital signs are stable upon arrival. - Related Data Home Medications Medication Instructions Recorded Confirmed Ascorbic Acid [Vitamin C] 500 mg PO DAILY 01/24/15 07/02/18 Calcium Carb-Vit D 500Mg-5Mcg 1 tab PO DAILY 01/24/15 07/02/18 [Oscal 500+D 5 Mcg (200 Iu)] Cholecalciferol [Vitamin D3 (25 1,000 unit PO DAILY 01/24/15 07/02/18 Mcg = 1000 Iu)] Multivit-Min/FA/Lycopene/Lut 1 tab PO DAILY 01/24/15 07/02/18 [Centrum Silver Tablet] Simvastatin 20 mg PO HS 01/24/15 07/02/18 Ascorbic Acid [Vitamin C] 1,000 mg PO DAILY 07/02/18 07/02/18 Aspirin [Adult Low Dose Aspirin EC] 81 mg PO DAILY 07/02/18 07/02/18 Cholecalciferol [Vitamin D3 (25 1,000 unit PO DAILY 07/02/18 07/02/18 Mcg = 1000 Iu)] Previous Rx's Medication Instructions Recorded traMADol HCL [Ultram] 50 - 100 mg PO Q4-6H PRN #20 tab 07/09/18 Albuterol Inhaler (Mhu) [Ventolin 2 puff INHALATION QID #1 inhaler 07/11/18 Hfa Inhaler (Mhu)] Lidocaine [Lidoderm 5% Patch] 1 patch TRANSDERM DAILY 20 Days 05/07/21 #20 patch Allergies Allergy/AdvReac Type Severity Reaction Status Date / Time No Known Allergies Allergy Verified 06/08/21 16:25 Review of Systems ROS Statement: Those systems with pertinent positive or pertinent negative responses have been documented in the HPI. ROS Other: All systems not noted in ROS Statement are negative. Past Medical History Past Medical History: Hyperlipidemia Additional Past Medical History / Comment(s): osteoporosis History of Any Multi-Drug Resistant Organisms: None Reported Past Surgical History: Section Additional Past Surgical History / Comment(s): Excision of skin cancer on face 2, laparoscopic appendectomy due to perforated appendicitis Past Anesthesia/Blood Transfusion Reactions: No Reported Reaction Past Psychological History: No Psychological Hx Reported Smoking Status: Never smoker Past Alcohol Use History: None Reported Past Drug Use History: None Reported - Past Family History Father Additional Family Medical History / Comment(s): Father had "heart condition" Mother Family Medical History: CVA/TIA, Diabetes Mellitus General Exam - General Exam Comments Initial Comments: GENERAL: Patient is well-developed and well-nourished. Patient is nontoxic and in no acute distress. HEAD: Atraumatic, normocephalic. EYES: Pupils equal round and reactive to light, extraocular movements intact, sclera anicteric, conjunctiva are normal. Eyelids were unremarkable. ENT: Moist mucous membranes. NECK: Normal range of motion, supple without lymphadenopathy or JVD. LUNGS: Unlabored respirations. Breath sounds clear to auscultation bilaterally and equal. No wheezes rales or rhonchi. HEART: Regular rate and rhythm without murmurs, rubs or gallops. ABDOMEN: Soft, tender to palpation of the upper abdomen, normoactive bowel sounds. No guarding, no rebound. No masses appreciated. MUSCULOSKELETAL: Normal extremities with adequate strength and normal range of motion, no pitting or edema. No clubbing or cyanosis. NEUROLOGICAL: Patient is alert and oriented x 3. Motor and sensory are also intact. Cranial nerves II through XII grossly intact. Symmetrical smile. Normal speech, normal gait. PSYCH: Normal mood, normal affect. SKIN: Warm, Dry, normal turgor, no rashes or lesions noted. Limitations: no limitations Course Vital Signs 06/08/21 06/08/21 16:20 19:57 Temperature 99.1 F 97.8 F Pulse Rate 104 H 96 Respiratory 18 16 Rate Blood Pressure 144/86 157/87 O2 Sat by Pulse 97 97 Oximetry Medical Decision Making - Medical Decision Making Patient is an 89-year-old female here with upper abdominal pain intermittently over the past week. No fevers, no nausea or vomiting. Her vital signs are stable. Her labs are unremarkable, and shows no evidence of infection. U ltrasound of the gallbladder reveals a complex area on the tail of the pancreas, contrast CT is recommended. No other acute findings. Did do a CT of the abdomen and pelvis, no acute abnormality of the abdomen and pelvis. Patient has been resting currently here in the ER. Gave her a single dose of Toradol and some fluids. I discussed these findings with the patient. Recommended following up with her primary care. She is agreeable to this plan and care and she is stable for discharge. Return parameters were discussed with her and her daughter and they both verbalized understanding. Case discussed with Dr. Atkins. - Lab Data Result diagrams: 06/08/21 20:18 06/08/21 20:18 Lab Results 06/08/21 06/08/21 06/08/21 Range/Units 20:18 20:18 20:18 WBC 10.5 (3.8-10.6) k/uL RBC 4.43 (3.80-5.40) m/uL Hgb 13.4 (11.4-16.0) gm/dL Hct 41.0 (34.0-46.0) % MCV 92.5 (80.0-100.0) fL MCH 30.3 (25.0-35.0) pg MCHC 32.8 (31.0-37.0) g/dL RDW 12.3 (11.5-15.5) % Plt Count 236 (150-450) k/uL MPV 7.3 Neutrophils % 74 % Lymphocytes % 15 % Monocytes % 6 % Eosinophils % 3 % Basophils % 0 % Neutrophils # 7.7 (1.3-7.7) k/uL Lymphocytes # 1.6 (1.0-4.8) k/uL Monocytes # 0.7 (0-1.0) k/uL Eosinophils # 0.3 (0-0.7) k/uL Basophils # 0.0 (0-0.2) k/uL PT 9.7 (9.0-12.0) sec INR 0.9 (<1.2) APTT 22.3 (22.0-30.0) sec Sodium 137 (137-145) mmol/L Potassium 4.1 (3.5-5.1) mmol/L Chloride 101 (98-107) mmol/L Carbon Dioxide 28 (22-30) mmol/L Anion Gap 8 mmol/L BUN 17 (7-17) mg/dL Creatinine 0.65 (0.52-1.04) mg/dL Est GFR (CKD-EPI)AfAm >90 (>60 ml/min/1.73 sqM) Est GFR (CKD-EPI)NonAf 79 (>60 ml/min/1.73 sqM) Glucose 90 (74-99) mg/dL Calcium 9.8 (8.4-10.2) mg/dL Total Bilirubin 0.5 (0.2-1.3) mg/dL AST 31 (14-36) U/L ALT 21 (4-34) U/L Alkaline Phosphatase 65 (38-126) U/L Troponin I (0.000-0.034) ng/mL Total Protein 7.3 (6.3-8.2) g/dL Albumin 4.3 (3.5-5.0) g/dL Amylase 124 H (30-110) U/L Lipase 189 (23-300) U/L Urine Color Urine Appearance (Clear) Urine pH (5.0-8.0) Ur Specific [place] (1.001-1.035) Urine Protein (Negative) Urine Glucose (UA) (Negative) Urine Ketones (Negative) Urine Blood (Negative) Urine Nitrite (Negative) Urine Bilirubin (Negative) Urine Urobilinogen (<2.0) mg/dL Ur Leukocyte Esterase (Negative) Urine RBC (0-5) /hpf Urine WBC (0-5) /hpf Hyaline Casts (0-2) /lpf Urine Mucus (None) /hpf 06/08/21 06/08/21 Range/Units 20:18 20:26 WBC (3.8-10.6) k/uL RBC (3.80-5.40) m/uL Hgb (11.4-16.0) gm/dL Hct (34.0-46.0) % MCV (80.0-100.0) fL MCH (25.0-35.0) pg MCHC (31.0-37.0) g/dL RDW (11.5-15.5) % Plt Count (150-450) k/uL MPV Neutrophils % % Lymphocytes % % Monocytes % % Eosinophils % % Basophils % % Neutrophils # (1.3-7.7) k/uL Lymphocytes # (1.0-4.8) k/uL Monocytes # (0-1.0) k/uL Eosinophils # (0-0.7) k/uL Basophils # (0-0.2) k/uL PT (9.0-12.0) sec INR (<1.2) APTT (22.0-30.0) sec Sodium (137-145) mmol/L Potassium (3.5-5.1) mmol/L Chloride (98-107) mmol/L Carbon Dioxide (22-30) mmol/L Anion Gap mmol/L BUN (7-17) mg/dL Creatinine (0.52-1.04) mg/dL Est GFR (CKD-EPI)AfAm (>60 ml/min/1.73 sqM) Est GFR (CKD-EPI)NonAf (>60 ml/min/1.73 sqM) Glucose (74-99) mg/dL Calcium (8.4-10.2) mg/dL Total Bilirubin (0.2-1.3) mg/dL AST (14-36) U/L ALT (4-34) U/L Alkaline Phosphatase (38-126) U/L Troponin I <0.012 (0.000-0.034) ng/mL Total Protein (6.3-8.2) g/dL Albumin (3.5-5.0) g/dL Amylase (30-110) U/L Lipase (23-300) U/L Urine Color Yellow Urine Appearance Clear (Clear) Urine pH 5.5 (5.0-8.0) Ur Specific [place] 1.015 (1.001-1.035) Urine Protein Negative (Negative) Urine Glucose (UA) Negative (Negative) Urine Ketones 1+ H (Negative) Urine Blood Trace H (Negative) Urine Nitrite Negative (Negative) Urine Bilirubin Negative (Negative) Urine Urobilinogen <2.0 (<2.0) mg/dL Ur Leukocyte Esterase Negative (Negative) Urine RBC 7 H (0-5) /hpf Urine WBC 1 (0-5) /hpf Hyaline Casts 1 (0-2) /lpf Urine Mucus Rare H (None) /hpf Disposition Clinical Impression: Abdominal pain Disposition: HOME SELF-CARE Condition: Stable Instructions (If sedation given, give patient instructions): Abdominal Pain (ED) Additional Instructions: Please return to the Emergency Department if symptoms worsen or any other concerns. Please follow-up with your primary care physician. Increase your fluids. Is patient prescribed a controlled substance at d/c from ED?: No Referrals: Odin Alexander DO [Primary Care Provider] - 1-2 days Time of Disposition: 23:26
--- NOTE | 2021-06-08 21:19 | US ---
EXAMINATION TYPE: US gallbladder DATE OF EXAM: 06/08/2021 COMPARISON: CT CLINICAL HISTORY: RUQ/epigastric pain. Pain. Hx appendectomy, surgery for colon cancer. EXAM MEASUREMENTS: Liver Length: 11.5 cm Gallbladder Wall: 0.14 cm CBD: 0.58 cm Right Kidney: 9.9 x 4.6 x 3.5 cm Limited due to gas. Pancreas: Complex area seen within pancreatic tail: 0.7 x 1.2 x 0.7 cm. Liver: Appears wnl. Gallbladder: Folds seen, appears anechoic. Positioned anteriorly. Evidence for sonographic Ardon's sign: No. CBD: Measures upper limits of normal. Right Kidney: Hyperechoic focus with twinkle artifact seen: 0.5 x 0.7 x 0.5 cm. May be a nonobstructi ng renal stone Anechoic area seen upper pole: 1.3 x 1.6 x 0.9 cm. Anechoic area seen lower pole: 1.2 x 1.1 x 1.0 cm. IMPRESSION: 1. Complex area within the tail of pancreas measuring approximately 1 cm. Neoplasm is not excluded. C ontrast CT with pancreas protocol is recommended for additional workup 2. Nonobstructing right renal stone. 3. Right renal cyst
--- NOTE | 2021-06-08 23:09 | CT ---
EXAMINATION TYPE: CT abdomen pelvis w con DATE OF EXAM: 06/08/2021 COMPARISON: 07/02/2018 HISTORY: Upper abdomen pain. Abnormal US. CT DLP: 468.9 mGycm Automated exposure control for dose reduction was used. CONTRAST: Performed with IV Contrast, patient injected with 100 mL of Isovue 300. The lung bases are clear of consolidation. There is no pleural effusion. Heart appears slightly enlar ged. Aorta is atheromatous. Liver spleen stomach pancreas appear intact. The bile ducts are not dilated. Gallbladder appears norm al. There is no adrenal mass. Kidneys show satisfactory contrast opacification. There is no hydronephrosi s. Delayed images show normal renal excretion. There is 1.5 cm cortical cyst lateral right kidney. Th ere is no retroperitoneal adenopathy. Ureters are not dilated. Bladder distends smoothly. There is no inguinal hernia. There is no free fluid in the pelvis. There are sigmoid diverticula. There is no di verticulitis. There are some surgical clips in the right lower quadrant that could be at the cecum. T here is no mesenteric edema. There is no ascites or free air. There is no bowel obstruction. There is thoracolumbar dextroscoliosis. There are spondylotic changes in the lumbar spine without sig nificant compression fracture. The bony pelvis is intact. Hip joints are intact. IMPRESSION: Atherosclerotic vascular disease. No evidence of a bowel obstruction. There is clearing of the bowel obstruction compared to old exam. Sigmoid diverticulosis without change. No acute abnormality in the abdomen pelvis. Spondylotic change s and lumbar dextroscoliosis.
[2021-06-09 00:08] VITALS: BP 151/88; PULSE 66; RESP 18
== END 2021-06-09 00:08 | disposition home or self-care (01) ==
LOC: EC 15:16
DX: R10.10 Upper abdominal pain, unspecified (principal); E78.5 Hyperlipidemia, unspecified; Z79.82 Long term (current) use of aspirin; Z79.51 Long term (current) use of inhaled steroids; Z79.899 Other long term (current) drug therapy
CPT/HCPCS: 36415; 80053; 82150; 83690; 84484; 85025; 85610; 85730; 81001; 74019; 76705; 74177; 99284; 96374; J1885; Q9967

== ENCOUNTER → 2021-07-27 | Outpatient (CLI) | payer MEDICARE, OTHER ==
[2021-07-27 15:32] VITALS: BP 151/86; PULSE 81; RESP 18
--- NOTE | 2021-07-27 15:37 | P.CON ---
Consult Note - . Consult date: 07/27/21 Assessment/Plan:: HISTORY OF PRESENT ILLNESS: 89 yr old female as a referral from Dr Cannon presents with daughter at side with lower lumbar pain due to a history of lumbar degenerative disc disease, spondylosis and facet arthropathy for pain management. States pain is 5-6 /10 in intensity, dull and achy in the lower lumbar spine and radiates towards the right hip and right leg. At times, she feels right leg tightness. States it is provoked with excessive walking, bending or standing. States pain is progressively worsening over the last 4 months. She manages it with Advil, oral steroid taper (which improved her pain to ambulate from a walker to a cane), rest, chiropractic treatments, rest and stretching. PMH: OA, Obesity, Hyperlipidemia PSH: Colon CA s/p colectomy SH: No ETOH, tobacco or illicit drug use history FH: DM, CA All: NKDA Meds: See list REVIEW OF ORGAN SYSTEMS: CONSTITUTIONAL: No fevers or chills. No recent weight loss. HEENT: No visual acuity loss, eye pain, difficulties with hearing. No nosebleeds. No difficulty swallowing. RESPIRATORY: Denies any troubles with breathing or dyspnea on exertion. CARDIOVASCULAR: Denies any chest pain, palpitations, or recent heart attacks. GASTROINTESTINAL: Denies fatty food intolerance. Has change in bowel habits and gas bloat. GENITOURINARY: Denies any blood in urine. Has increased urinary frequency. NEUROLOGICAL: + numbness and tingling along the distal extremities. No seizure disorders or headaches. MUSCULOSKELETAL: + back pain SKIN: No skin cancer. No rash. PSYCHIATRIC: Denies current depression or suicidal thoughts. ENDOCRINE: Denies current thyroid disorders. Denies any blood sugar glucose intolerance. HEME/LYMPHATIC: Denies any lumps and bumps around the neck. History of deep venous thrombosis. ALLERGY/IMMUNOLOGY: No immunoglobulin therapy. No immune deficiencies. BREAST: Denies current breast lumps, pain or nipple discharge. Physical Examinations : Constitutional : Cooperative , not in acute distress . HEENT: Neck supple. No Lymphadenopathy. Normal thyroid size . Eyes no ptosis , no icterus, no photophobia . Hearing intact. Normal oropharynx. No Thrush. Respiratory : Chest clear to auscultations bilaterally. No wheezing. No rhonchi. Cardiovascular : Regular rate and rhythm , S1 / S2. No S3 . No S4. Gastrointestinal : Abdomen soft. No tenderness. Bowel sounds x 4. No organomegaly . Genitourinary : Deferred. Neurologic : Cranial nerve II to XII intact. No focal neurological deficits. Psychiatric : alert & oriented x 3. Matching mood & appropriate affect. Judgment & insight intact. Lymphatic No Lymphadenopathy. Musculoskeletal : Cervical Spine Motor strength in the deltoid and biceps: Normal right side. Normal Left side Motor strength biceps and the wrist extensors: Normal right side . Normal left side Motor strength in the triceps muscle: Normal right side. Normal left side Deep tendon reflexes: Normal at the biceps. Normal at Brachioradialis. Normal at triceps Cervical facet loading test: positive bilaterally Spurling test: positive bilaterally Neck distraction test: positive bilaterally Susannah sign: positive bilaterally Lumbar spine Motor strength lower extremities ,thigh and legs 5/5 Right side , 5/5 Left side age appropriate Deep tendon reflexes : Normal Knee Jerk. Normal Ankle Jerk L5 vertebral body tenderness to palpation Lumbar facet Loading Test: positive Right / positive Left at L5 BL Range of motion of the lumbar spine Flexion 30 degrees, extension 10 degrees Straight Leg Raise test: Left/ Right positive at <30 degree Jah test: positive right / positive left. Severe tenderness over the Sacroiliac joint on the Right / Left sides Gaenslen test: positive right Seated flexion test: positive bilaterally. IMAGING reviewed. Assessment/ Plan : Recommendation of LESI L5-S1 Risks/ benefits of procedure discussed and pt/ daughter at side stated they need to think about it before going forward Discussed to discontinue ASA 5 days prior to procedure Continue all other medications as directed I have spent greater than 50 minutes on patient care today. Dr Heath was available by phone for the evaluation of this patient. The time was used to review the medical records including relevant urine studies and Prescription history (MAPs), review of the available imaging, evaluation and examination of the patient, coordination of care with the medical staff and if applicable referring physicians, as well as creation of the medical record PQRS Measure Charge Sheet Mode of Arrival: Ambulatory - Pain Location Right Lower Back Non-Pharmacological Interventions: Inactivity Pharmacological Interventions: PRN Medication PQRS Narrative: Smoking Status Never smoker Blood Pressure 151/86 Pain Intensity [Right Lower 6 Back] Scale Used Numeric (1 - 10) Home Medications: Ambulatory Orders Ascorbic Acid [Vitamin C] 500 mg PO BID 01/24/15 Simvastatin 20 mg PO HS 01/24/15 Aspirin [Adult Low Dose Aspirin EC] 81 mg PO MOWEFR 07/02/18 Cholecalciferol [Vitamin D3 (25 Mcg = 1000 Iu)] 2,000 unit PO BID 07/02/18 Tres/D3/Mag11/Zinc/Tax Adjuster/Braulio/Bor [Caltrate 600+D Plus Tablet] 1 each PO DAILY 07/21/21 Elderberry Fruit and Flower [Black Elderberry 575 mg Cap] 1.7 gram PO DAILY 07/21/21 Ibuprofen/Acetaminophen [Advil Dual Action 250Mg-125Mg] 1 each PO BID 07/21/21 Loperamide [Imodium] 2 mg PO DIRECTED PRN 07/21/21 Multivit-Min/Iron/Folic/Lutein [Centrum Silver Women Tablet] 1 each PO DAILY 07/21/21 Zinc 30 mg PO BID 07/21/21
== END ==
LOC: PNWHC3 13:40
PROVIDERS: ATTEND Physician Assistant Medical
DX: M51.36 Other intervertebral disc degeneration, lumbar region (principal); M47.816 Spondylosis without myelopathy or radiculopathy, lumbar region; E78.5 Hyperlipidemia, unspecified
CPT/HCPCS: 99211